=== PATIENT | female | born 1965 | race Caucasian/White ===

== ENCOUNTER 2017-07-01 11:24 | Inpatient (IN) | payer MEDICAID, OTHER ==
[~2017-07-01] VITALS: Ht 152.4 cm; Wt 75.7 kg
[2017-07-01] MEDS ORDERED: MEROPENEM 1 GM/50ML(PMX) 50 ML IVPB STA (12:15)
[2017-07-01] MEDS ORDERED: SODIUM CHLORIDE 0.9% 1L BAG IV* STA (12:15)
[2017-07-01 12:38] LABS: BASOPHIL # 0.1 10^3/ul (0.0-0.1); BASOPHILS % 0.9 % (0.0-2.0); EOSINOPHILS # 0.1 10^3/ul (0.0-0.5); EOSINOPHILS % 1.2 % (0.0-7.0); HEMATOCRIT 40.2 % (37.0-47.0); HEMOGLOBIN 13.5 g/dl (12.0-16.0); LYMPHOCYTES # 1.7 10^3/ul (0.8-2.9); LYMPHOCYTES % 20.5 % (15.0-51.0); MEAN CORPUSCULAR HEMOGLOBIN 28.7 pg (29.0-33.0); MEAN CORPUSCULAR HGB CONC 33.6 g/dl (32.0-37.0); MEAN CORPUSCULAR VOLUME 85.5 fl (82.0-101.0); MEAN PLATELET VOLUME 9.3 fl (7.4-10.4); MONOCYTE # 0.5 10^3/ul (0.3-0.9); MONOCYTES % 6.7 % (0.0-11.0); NEUTROPHILS % 70.6 % (39.0-77.0); PLATELET COUNT 437 10^3/UL (140-415); RED CELL DISTRIBUTION WIDTH 12.6 % (11.5-14.5); WHITE BLOOD COUNT 8.1 10^3/ul (4.8-10.8)
[2017-07-01 12:53] LABS: INR 0.92; PROTIME 12.4 Sec (12.2-14.2)
[2017-07-01 12:54] LABS: PARTIAL THROMBOPLASTIN TIME 26.9 Sec (25.0-35.0)
[2017-07-01 13:16] LABS: ALANINE AMINOTRANSFERASE 50 IU/L (13-69); ALBUMIN 4.3 g/dl (3.3-4.9); ALBUMIN/GLOBULIN RATIO 1.26; ALKALINE PHOSPHATASE 107 IU/L (42-121); ANION GAP 12 (8-16); ASPARTATE AMINO TRANSFERASE 28 IU/L (15-46); BILIRUBIN,INDIRECT 0.3 mg/dl (0-1.1); BILIRUBIN,TOTAL 0.3 mg/dl (0.2-1.3); BLOOD UREA NITROGEN 11 mg/dl (7-20); CALCIUM 9.6 mg/dl (8.4-10.2); CARBON DIOXIDE 28 mmol/L (21-31); CHLORIDE 101 mmol/L (97-110); CREATININE 0.58 mg/dl (0.44-1.00); GLUCOSE 95 mg/dl (70-220); POTASSIUM 4.1 mmol/L (3.5-5.1); SODIUM 137 mmol/L (135-144); TOTAL PROTEIN 7.7 g/dl (6.1-8.1)
--- NOTE | 2017-07-01 13:30 | ERA ---
ER Documentation Chief Complaint Date/Time DATE: 07/01/17 TIME: 13:27 Chief Complaint ap with diarrhea x day HPI Patient is a 52-year-old female with hypertension who presents for multidrug- resistant UTI. The patient was sent to the ER by Dr. Grady the primary doctor for UTI which is failed outpatient treatment. She said that she has had pain in the left lower quadrant and over the bladder for 1 month and was treated with antibiotics as an outpatient but was not getting better. A urine culture done as an outpatient showed multidrug-resistant UTI sensitive to meropenem and ertapenem per the primary doctor. ROS All systems reviewed and are negative except as per history of present illness. Allergies Allergies: Coded Allergies: No Known Allergy (Unverified , 07/01/17) PMhx/Soc History of Surgery: No Anesthesia Reaction: No Hx Neurological Disorder: No Hx Respiratory Disorders: No Hx Cardiac Disorders: No Hx Psychiatric Problems: No Hx Miscellaneous Medical Probl: Yes (kidney stone.) Hx Alcohol Use: Yes Hx Substance Use: No Hx Tobacco Use: No Smoking Status: Never smoker FmHx Family History: diabetes Physical Exam Vitals Vital Signs Date Time Temp Pulse Resp B/P Pulse Ox O2 Delivery O2 Flow Rate FiO2 07/01/17 11:37 97.8 79 18 160/90 99 Physical Exam Const: No acute distress Head: Atraumatic Eyes: Normal Conjunctiva ENT: Normal External Ears, Nose and Mouth. Neck: Full range of motion..~ No meningismus. Resp: Clear to auscultation bilaterally Cardio: Regular rate and rhythm, no murmurs Abd: Soft,Left lower quadrant tenderness to palpation without rebound or guarding Skin: No petechiae or rashes Back: No midline or flank tenderness Ext: No cyanosis, or edema Neur: Awake and alert Psych: Normal Mood and Affect Result Diagram: 07/01/17 1225 07/01/17 1225 Results 24 hrs Laboratory Tests Test 07/01/17 12:25 White Blood Count 8.110^3/ul Red Blood Count 4.7010^6/ul Hemoglobin 13.5g/dl Hematocrit 40.2% Mean Corpuscular Volume 85.5fl Mean Corpuscular Hemoglobin 28.7pg Mean Corpuscular Hemoglobin Concent 33.6g/dl Red Cell Distribution Width 12.6% Platelet Count 40695^3/UL Mean Platelet Volume 9.3fl Neutrophils % 70.6% Lymphocytes % 20.5% Monocytes % 6.7% Eosinophils % 1.2% Basophils % 0.9% Nucleated Red Blood Cells % 0.0/100WBC Neutrophils # (Manual) 5.710^3/ul Lymphocytes # 1.710^3/ul Monocytes # 0.510^3/ul Eosinophils # 0.110^3/ul Basophils # 0.110^3/ul Nucleated Red Blood Cells # 0.010^3/ul Prothrombin Time 12.4Sec Prothrombin Time Ratio 1.0 INR International Normalized Ratio 0.92 Activated Partial Thromboplast Time 26.9Sec Sodium Level 137mmol/L Potassium Level 4.1mmol/L Chloride Level 101mmol/L Carbon Dioxide Level 28mmol/L Anion Gap 12 Blood Urea Nitrogen 11mg/dl Creatinine 0.58mg/dl Glucose Level 95mg/dl Calcium Level 9.6mg/dl Total Bilirubin 0.3mg/dl Direct Bilirubin 0.00mg/dl Indirect Bilirubin 0.3mg/dl Aspartate Amino Transf (AST/SGOT) 28IU/L Alanine Aminotransferase (ALT/SGPT) 50IU/L Alkaline Phosphatase 107IU/L Troponin I Pending Total Protein 7.7g/dl Albumin 4.3g/dl Globulin 3.40g/dl Albumin/Globulin Ratio 1.26 Current Medications Medications (Trade) Dose Ordered Sig/Jimbo Route PRN Reason Start Time Stop Time Status Last Admin Dose Admin Sodium Chloride 2760 ml 2,760 ml BOLUS OVER 2 HOURS STAT IV* 07/01/17 12:15 07/01/17 12:16 DC 07/01/17 12:39 Meropenem/Sodium Chloride (Merrem 1 Gm/50 ml (Pmx)) 50 ml @ 100 mls/hr ONCE STAT IVPB 07/01/17 12:15 07/01/17 12:44 DC 07/01/17 13:01 Procedures/MDM EKG read by me: Rate/Rhythm: Regular rate and rhythm at a normal rate Intervals: Normal Impression: No evidence of ischemia or arrhythmia Patient is a 52-year-old female presents with a multidrug-resistant UTI. It sounds like from an outpatient urine culture the patient is only sensitive to the panel medications. The patient has [facility] insurance and therefore will need admission to Dr. Ward. I have called Dr. Ward and I am awaiting a callback at this time for admission to a medical surgical bed. The patient was given meropenem 1 g IV. I doubt sepsis at this time. The patient has a urinalysis and urine culture pending from [facility]. She is already been on outpatient antibiotics and has failed outpatient antibiotics this time. Departure Diagnosis: Primary Impression: UTI (urinary tract infection) Qualified Code: N30.00 - Acute cystitis without hematuria Additional Impression: Abdominal pain Qualified Code: R10.32 - Left lower quadrant pain Condition: BRENDON Vargas MD Jul 01, 2017 13:30
[2017-07-01 13:52] LABS: TROPONIN-I < 0.012 ng/ml (0.00-0.12)
[2017-07-01 13:53] LABS: ADD UMIC YES; UR ASCORBIC ACID NEGATIVE (NEGATIVE); UR BACTERIA FEW /HPF (NONE SEEN); UR BILIRUBIN (Dip) NEGATIVE (NEGATIVE); UR BLOOD (Dip) 1+ mg/dL (NEGATIVE); UR CLARITY SLIGHTLY CLOUDY (CLEAR); UR COLOR YELLOW (YELLOW); UR GLUCOSE (Dip) NEGATIVE (NEGATIVE); UR KETONES (Dip) NEGATIVE (NEGATIVE); UR LEUKOCYTE ESTERASE (Dip) 3+ Leu/ul (NEGATIVE); UR NITRITE (Dip) NEGATIVE (NEGATIVE); UR RBC 5 /HPF (0-5); UR SPECIFIC GRAVITY (Dip) 1.004 (1.003-1.030); UR SQUAMOUS EPITHELIAL CELL FEW /HPF (FEW); UR TOTAL PROTEIN (Dip) NEGATIVE (NEGATIVE); UR UROBILINOGEN (Dip) NEGATIVE (NEGATIVE)
[2017-07-01] MEDS ORDERED: ONDANSETRON 4 MG INJ IV PRN ×2 (14:00→17:30)
[2017-07-01] MEDS ORDERED: ACETAMINOPHEN 325 MG TAB PO PRN (14:00)
[2017-07-01 14:55] VITALS: TEMP 98.4
[2017-07-01] MEDS ORDERED: LOSA25TA2 PO (16:30)
[2017-07-01] MEDS ORDERED: METR70GE15 VAG (16:30)
[2017-07-01 16:43] VITALS: Ht 152.4 cm; Wt 75.7 kg
[2017-07-01 16:51] VITALS: BP 161/97; PULSE 66; RESP 20
[2017-07-01] MEDS ORDERED: ACETAMINOPHEN 650 MG SUPP PR PRN (17:30)
[2017-07-01] MEDS ORDERED: HYDROCODONE/APAP (5/325) TAB PO PRN (17:30)
[2017-07-01] MEDS ORDERED: NACL 0.9% 3 ML SYG IV SCH (17:30)
[2017-07-01] MEDS ORDERED: BISACODYL (EC) 5 MG TAB PO PRN (17:30)
[2017-07-01] MEDS ORDERED: DOCUSATE SODIUM 100 MG CAP PO PRN (17:30)
[2017-07-01] MEDS ORDERED: ZOLPIDEM 5 MG TAB PO PRN (17:30)
--- NOTE | 2017-07-01 17:57 | QN ---
Documentation Comment [id number] NICOLAS BARILLAS MD Jul 01, 2017 17:57
[2017-07-01] MEDS: SOD CHLORIDE 0.9% 1,000 ML IV SCH (18:10)
--- NOTE | 2017-07-01 19:32 | HP ---
DATE OF ADMISSION: 07/01/2017 HISTORY OF PRESENT ILLNESS: The patient with a history of hypertension, history of hysterectomy, history of multiple UTIs with bacterial resistance per patient who presented with recurrent UTI. The patient's leukocytes 3 plus, WBC is positive in the ER, as well as bacterial too. ALLERGIES: BENADRYL. FAMILY HISTORY: Diabetes and hypertension. SOCIAL HISTORY: Negative. MEDICATIONS AT HOME: The patient is Cozaar and Flagyl. REVIEW OF SYSTEMS: HEENT: Unremarkable. RESPIRATORY: Unremarkable. CARDIOVASCULAR: Unremarkable. ABDOMEN: Unremarkable. EXTREMITIES: Unremarkable. GENITOURINARY: Complaining of dysuria. WATER SPONGER: Unremarkable. PHYSICAL EXAMINATION: GENERAL APPEARANCE: The patient is awake, alert. VITAL SIGNS: Pulse 56, blood pressure 161/87. HEENT: Head is atraumatic, normocephalic. Pupils equal and reactive. NECK: Supple. There is no JVD. LUNGS: Clear. CARDIAC: S1, S2, normal. ABDOMEN: Soft, nontender. Bowel sounds audible. EXTREMITIES: No cyanosis, clubbing, or edema. WATER SPONGER: The patient is awake, alert, no focal deficit. LABORATORY DATA: As mentioned above. Urine positive. Sodium , potassium 4.1. IMPRESSION: 1. The patient has bacterial urinary tract infection (UTI). 2. Multi drug resistant urinary tract infection (UTI). PLAN: Continue to give this patient low salt diet. Continue home medications and antibiotics. Continue for culture results. Continue pain medications. Orders were done. Dictated By: Harley Ward MD /curt/yeni /Document#: [id number] BERNABE
[2017-07-01 20:17] VITALS: BP 167/83; RESP 18
[2017-07-01] MEDS: MEROPENEM 1 GM/50ML(PMX) 50 ML IVPB SCH (20:25)
[2017-07-01 21:27] VITALS: BP 125/79; PULSE 59; RESP 18
[2017-07-01 22:39] VITALS: BP 134/80; PULSE 60; RESP 17
[2017-07-01] MEDS ORDERED: MEROPENEM 2 GM in SOD CHLORIDE 0.9% 100 ML IVPB SCH (23:00)
[2017-07-02 02:11] VITALS: BP 135/85; RESP 18
[2017-07-02 03:03] VITALS: PULSE 70
[2017-07-02] MEDS: MEROPENEM 1 GM/50ML(PMX) 50 ML IVPB SCH ×3 (05:17→21:38)
[2017-07-02] MEDS ORDERED: PANTOPRAZOLE 40 MG INJ IV SCH (06:00)
[2017-07-02 07:54] VITALS: BP 120/76; RESP 17
[2017-07-02] MEDS: LOSARTAN 25 MG TAB PO SCH (09:14)
[2017-07-02] MEDS: MAGNESIUM HYDROXIDE 30ML CUP PO PRN (09:27)
[2017-07-02 14:31] VITALS: BP 114/70; RESP 18
[2017-07-02] MEDS: SOD CHLORIDE 0.9% 1,000 ML IV SCH (14:46)
[2017-07-02] MEDS: ACETAMINOPHEN 325 MG TAB PO PRN (19:51)
[2017-07-02 20:05] VITALS: BP 140/96; RESP 19
--- NOTE | 2017-07-02 23:35 | PN ---
Date/Time of Note Date/Time of Note DATE: 07/02/17 TIME: 23:34 Assessment/Plan VTE Prophylaxis VTE Prophylaxis Intervention: other Lines/Catheters IV [facility]from [facility] [place] Urinary Cath still in place: No Assessment/Plan Chief Complaint/Hosp Course IMPRESSION: 1. The patient has bacterial urinary tract infection (UTI). 2. Multi drug resistant urinary tract infection (UTI). PLAN ANTIBIOTIC Problems: Subjective 24 Hr Interval Summary Cardiovascular: no complaints Gastrointestinal: no complaints Exam/Review of Systems Vital Signs Vitals Vital Signs Date Time Temp Pulse Resp B/P Pulse Ox O2 Delivery O2 Flow Rate FiO2 07/02/17 20:05 98.0 77 19 140/96 99 07/01/17 22:39 Room Air Intake and Output 07/01/17 07/01/17 07/02/17 15:00 23:00 07:00 Intake Total 50 ml 1100 ml Output Total 1200 ml Balance 50 ml -100 ml Exam Respiratory: clear to auscultation Cardiovascular: regular rate and rhythm Gastrointestinal: soft Extremities: normal pulses Results Result Diagram: 07/01/17 1225 07/01/17 1225 Medications Medications Current Medications Losartan Potassium 25 mg 25 mg DAILY PO Last administered on 07/02/17 09:14; Admin Dose 25 MG; Start 07/02/17 at 09:00 Sodium Chloride (NS) 1,000 ml @ 50 mls/hr Q20H IV Last administered on 14:46; Admin Dose 50 MLS/HR; Start 07/01/17 at 17:01 Ondansetron HCl (Zofran Inj) 4 mg Q6H PRN IV NAUSEA AND/OR VOMITING; Start 07/01 at 17:30 Acetaminophen (Tylenol Tab) 650 mg Q6H PRN PO PAIN LEVEL 1-3 OR FEVER Last administered on 07/02/17 19:51; Admin Dose 650 MG; Start 07/01/17 at 17:30 Acetaminophen (Tylenol Supp) 650 mg Q6H PRN [place] PAIN LEVEL 1-3 OR FEVER; Start 07/01/17 at 17:30 Acetaminophen/ Hydrocodone Bitart ([place] (5/325)) 1 tab Q6H PRN PO MODERATE PAIN LEVEL 4-6; Start 07/01/17 at 17:30 Docusate Sodium (Colace) 100 mg Q12H PRN PO CONSTIPATION; Start 07/01/17 at 17: 30 Magnesium Hydroxide (Milk Of Mag) 30 ml DAILY PRN PO CONSTIPATION Last administered on 07/02/17 09:27; Admin Dose 30 ML; Start 07/01/17 at 17:30 Bisacodyl (Dulcolax) 5 mg DAILY PRN PO CONSTIPATION; Start 07/01/17 at 17:30 Zolpidem Tartrate 5 mg 5 mg QHS PRN PO SLEEP; Start 07/01/17 at 17:30 Meropenem/Sodium Chloride (Merrem 1 Gm/50 ml (Pmx)) 50 ml @ 100 mls/hr Q8 IVPB Last administered on 07/02/17 21:38; Admin Dose 100 MLS/HR; Start 07/01/17 at 21:00 Pantoprazole (Protonix Tab) 40 mg DAILY@06 PO ; Start 07/03/17 at 06:00 NICOLAS BARILLAS MD Jul 02, 2017 23:35
[2017-07-03] MEDS ORDERED: ALBUTEROL/IPRATROPIUM (NEB) 3 ML AMP HHN PRN
[2017-07-03 02:05] VITALS: BP 119/75; RESP 18
[2017-07-03] MEDS: PANTOPRAZOLE (EC) 40 MG TAB PO SCH (05:11)
[2017-07-03] MEDS: MEROPENEM 1 GM/50ML(PMX) 50 ML IVPB SCH ×3 (05:11→20:48)
[2017-07-03 06:37] LABS: BASOPHIL # 0.1 10^3/ul (0.0-0.1); BASOPHILS % 0.6 % (0.0-2.0); EOSINOPHILS # 0.2 10^3/ul (0.0-0.5); HEMATOCRIT 37.7 % (37.0-47.0); HEMOGLOBIN 12.9 g/dl (12.0-16.0); LYMPHOCYTES # 1.9 10^3/ul (0.8-2.9); LYMPHOCYTES % 22.5 % (15.0-51.0); MEAN CORPUSCULAR HEMOGLOBIN 29.5 pg (29.0-33.0); MEAN CORPUSCULAR HGB CONC 34.2 g/dl (32.0-37.0); MEAN CORPUSCULAR VOLUME 86.1 fl (82.0-101.0); MEAN PLATELET VOLUME 9.1 fl (7.4-10.4); MONOCYTE # 0.5 10^3/ul (0.3-0.9); MONOCYTES % 6.4 % (0.0-11.0); NEUTROPHILS % 68.3 % (39.0-77.0); PLATELET COUNT 386 10^3/UL (140-415); RED BLOOD COUNT 4.38 10^6/ul (4.20-5.40); RED CELL DISTRIBUTION WIDTH 12.4 % (11.5-14.5); WHITE BLOOD COUNT 8.3 10^3/ul (4.8-10.8)
[2017-07-03 07:03] LABS: ALBUMIN 3.6 g/dl (3.3-4.9); ALBUMIN/GLOBULIN RATIO 1.24; BILIRUBIN,INDIRECT 0.3 mg/dl (0-1.1); BILIRUBIN,TOTAL 0.3 mg/dl (0.2-1.3); CALCIUM 8.7 mg/dl (8.4-10.2); CREATININE 0.48 mg/dl (0.44-1.00); POTASSIUM 3.9 mmol/L (3.5-5.1); TOTAL PROTEIN 6.5 g/dl (6.1-8.1)
[2017-07-03 08:08] VITALS: BP 143/81; RESP 16
[2017-07-03] MEDS: SOD CHLORIDE 0.9% 1,000 ML IV SCH (08:54)
[2017-07-03] MEDS: LOSARTAN 25 MG TAB PO SCH (08:54)
--- NOTE | 2017-07-03 14:11 | RADRPT ---
PROCEDURE: Retroperitoneal US. CLINICAL INDICATION: Urinary tract infection TECHNIQUE: Multiple sonographic images of the retroperitoneum were obtained. The images were revi ewed on a PACS workstation. COMPARISON: No prior studies are available for comparison. FINDINGS: The right kidney measures 13.7 cm. The left kidney measures 13.2 cm. The renal parenchymal echotexture is normal. There is moderate to severe right hydronephrosis. There is mild left hydronephrosis. There is no focal renal mass or calcification seen. There is a 2 cm shadowing lesion within the dependent portion of the bladder consistent with a bladd er calculus. The bladder is underdistended. IMPRESSION: Moderate to severe right hydronephrosis. Mild left hydronephrosis. 2 cm bladder calculus. A CT study can be obtained for further evaluation. RPTAT: EE Physician Stefan Date Time Electronically viewed and signed by Physician Stefan on 07/03/2017 14:11 /
[2017-07-03 14:53] VITALS: BP 134/76; RESP 17
--- NOTE | 2017-07-03 17:39 | PN ---
Date/Time of Note Date/Time of Note DATE: 07/03/17 TIME: 17:38 Assessment/Plan VTE Prophylaxis VTE Prophylaxis Intervention: other Lines/Catheters IV C[facility]ter Type (from [facility]): Peripheral IV Urinary Cath still in place: No Assessment/Plan Chief Complaint/Hosp Course IMPRESSION: 1. The patient has bacterial urinary tract infection (UTI). 2. Multi drug resistant urinary tract infection (UTI). 3 esbl uti 4 bladder stone PLAN ANTIBIOTIC dr read called Problems: Subjective 24 Hr Interval Summary Respiratory: no complaints Cardiovascular: no complaints Gastrointestinal: no complaints Genitourinary: No dysuria Exam/Review of Systems Vital Signs Vitals Vital Signs Date Time Temp Pulse Resp B/P Pulse Ox O2 Delivery O2 Flow Rate FiO2 07/03/17 14:53 97.6 77 17 134/76 97 07/01/17 22:39 Room Air Intake and Output 07/02/17 07/02/17 07/03/17 14:59 22:59 06:59 Intake Total 450 ml 1025 ml 710 ml Balance 450 ml 1025 ml 710 ml Exam Neck: supple Respiratory: clear to auscultation Cardiovascular: regular rate and rhythm Gastrointestinal: soft Musculoskeletal: nl extremities to inspection Extremities: normal pulses Results Result Diagram: 07/03/17 0627 07/03/17 0627 Results 24 hrs Laboratory Tests Test 07/03/17 06:27 White Blood Count 8.3 Red Blood Count 4.38 Hemoglobin 12.9 Hematocrit 37.7 Mean Corpuscular Volume 86.1 Mean Corpuscular Hemoglobin 29.5 Mean Corpuscular Hemoglobin Concent 34.2 Red Cell Distribution Width 12.4 Platelet Count 386 Mean Platelet Volume 9.1 Neutrophils % 68.3 Lymphocytes % 22.5 Monocytes % 6.4 Eosinophils % 2.0 Basophils % 0.6 Nucleated Red Blood Cells % 0.0 Neutrophils # (Manual) 5.7 Lymphocytes # 1.9 Monocytes # 0.5 Eosinophils # 0.2 Basophils # 0.1 Nucleated Red Blood Cells # 0.0 Sodium Level 137 Potassium Level 3.9 Chloride Level 106 Carbon Dioxide Level 22 Anion Gap 13 Blood Urea Nitrogen 9 Creatinine 0.48 Glucose Level 132 Calcium Level 8.7 Total Bilirubin 0.3 Direct Bilirubin 0.00 Indirect Bilirubin 0.3 Aspartate Amino Transf (AST/SGOT) 20 Alanine Aminotransferase (ALT/SGPT) 39 Alkaline Phosphatase 86 Total Protein 6.5 # Albumin 3.6 Globulin 2.90 Albumin/Globulin Ratio 1.24 Medications Medications Current Medications Losartan Potassium 25 mg 25 mg DAILY PO Last administered on 07/03/17 08:54; Admin Dose 25 MG; Start 07/02/17 at 09:00 Sodium Chloride (NS) 1,000 ml @ 50 mls/hr Q20H IV Last administered on 08:54; Admin Dose 50 MLS/HR; Start 07/01/17 at 17:01 Ondansetron HCl (Zofran Inj) 4 mg Q6H PRN IV NAUSEA AND/OR VOMITING; Start 07/01 at 17:30 Acetaminophen (Tylenol Tab) 650 mg Q6H PRN PO PAIN LEVEL 1-3 OR FEVER Last administered on 07/02/17 19:51; Admin Dose 650 MG; Start 07/01/17 at 17:30 Acetaminophen (Tylenol Supp) [address] PAIN LEVEL 1-3 OR FEVER; Start 07/01/17 at 17:30 Acetaminophen/ Hydrocodone Bitart ([place] (5/325)) 1 tab Q6H PRN PO MODERATE PAIN LEVEL 4-6; Start 07/01/17 at 17:30 Docusate Sodium (Colace) 100 mg Q12H PRN PO CONSTIPATION; Start 07/01/17 at 17: 30 Magnesium Hydroxide (Milk Of Mag) 30 ml DAILY PRN PO CONSTIPATION Last administered on 07/02/17 09:27; Admin Dose 30 ML; Start 07/01/17 at 17:30 Bisacodyl (Dulcolax) 5 mg DAILY PRN PO CONSTIPATION; Start 07/01/17 at 17:30 Zolpidem Tartrate 5 mg 5 mg QHS PRN PO SLEEP; Start 07/01/17 at 17:30 Meropenem/Sodium Chloride (Merrem 1 Gm/50 ml (Pmx)) 50 ml @ 100 mls/hr Q8 IVPB Last administered on 07/03/17 14:37; Admin Dose 100 MLS/HR; Start 07/01/17 at 21:00 Pantoprazole (Protonix Tab) 40 mg DAILY@06 PO Last administered on 07/03/17 05: 11; Admin Dose 40 MG; Start 07/03/17 at 06:00 NICOLAS BARILLAS MD Jul 03, 2017 17:39
[2017-07-03 20:00] VITALS: BP 142/72; RESP 18
--- NOTE | 2017-07-03 20:00 | CONS ---
Date/Time of Note Date/Time of Note DATE: 07/03/17 TIME: 19:47 Assessment/Plan Assessment/Plan Chief Complaint/Hosp Course 52-year-old female with recurrent urinary tract infection and infection that are resistant to oral antibiotic patient has ESBL in the urine and the renal ultrasound did show 2 cm bladder stone however the stone that is seen in the bladder would be a stone in the distal ureter or in a ureterocele. I did order a CT scan of the abdomen and pelvis and that should help us see the stones in the kidneys and follow the ureter down to the bladder and see if the stone is in the bladder or in the distal ureter or in a ureterocele. In the meantime she should continue the meropenem to treat her infection and most likely by Friday will be able to do a cystoscopy and break and remove the stone from either the bladder or the distal ureter or ureterocele. That will be determined after she gets the CT scan Problems: Consultation Date/Type/Reason Admit Date/Time Jul 01, 2017 at 13:56 Date of Consultation: Jul 03, 2017 Type of Consultation: Urology Reason for Consultation Bladder stones Referring Provider: NICOLAS BARILLAS MD Hx of Present Illness 52-year-old female was sent to the emergency room by her primary care physician because of urinary tract infection that is resistant to usual oral antibiotic and she needed only IV antibiotics. Patient had renal ultrasound and that showed kidney stones as well as bladder stones therefore a urological consultation was requested. The patient stated that she has been having recurrent urinary tract infections and she was recently referred by her primary care doctor to a urologist in [place] and also she was found to have an infection and she was told that she needs to have the infection treated first and the doctor was planning on looking inside her bladder. The patient does have a history of kidney stones and she thinks that she has passed them Constitutional: other (Patient very emotional and at sometimes she was crying) Eyes: no complaints ENT: no complaints Respiratory: no complaints Cardiovascular: no complaints Gastrointestinal: no complaints Genitourinary: dysuria, flank pain Musculoskeletal: no complaints Skin: no complaints Neurologic: no complaints Endocrine: no complaints Lymphatic: no complaints Psychological: no complaints Past Medical History Medical History: hypertension Past Surgical History Past Surgical Hx: other (Hysterectomy) Social History Alcohol Use: occasionally Smoking Status: Never smoker Drug Use: none Exam/Review of Systems Vital Signs Vitals Vital Signs Date Time Temp Pulse Resp B/P Pulse Ox O2 Delivery O2 Flow Rate FiO2 07/03/17 14:53 97.6 77 17 134/76 97 07/01/17 22:39 Room Air Intake and Output 07/02/17 07/02/17 07/03/17 14:59 22:59 06:59 Intake Total 450 ml 1025 ml 710 ml Balance 450 ml 1025 ml 710 ml Exam Constitutional: alert, oriented Psych: anxiety, no complaints Head: normocephalic Eyes: nl conjunctiva ENMT: nl external ears & nose Neck: non-tender, supple Respiratory: normal air movement Cardiovascular: nl pulses Gastrointestinal: soft, surgical scars Genitourinary - Female: CVA tenderness, other (Pelvic exam: pain on the right side, no discharge and no mass palpable) Musculoskeletal: nl extremities to inspection Extremities: No calf tenderness, No edema Results Renal ultrasound: Moderate to severe right hydronephrosis. Mild left hydronephrosis. 2 cm bladder calculus. Result Diagram: 07/03/1762607/03/17626 Results 24 hrs Laboratory Tests Test 07/03/17 06:27 White Blood Count 8.3 Red Blood Count 4.38 Hemoglobin 12.9 Hematocrit 37.7 Mean Corpuscular Volume 86.1 Mean Corpuscular Hemoglobin 29.5 Mean Corpuscular Hemoglobin Concent 34.2 Red Cell Distribution Width 12.4 Platelet Count 386 Mean Platelet Volume 9.1 Neutrophils % 68.3 Lymphocytes % 22.5 Monocytes % 6.4 Eosinophils % 2.0 Basophils % 0.6 Nucleated Red Blood Cells % 0.0 Neutrophils # (Manual) 5.7 Lymphocytes # 1.9 Monocytes # 0.5 Eosinophils # 0.2 Basophils # 0.1 Nucleated Red Blood Cells # 0.0 Sodium Level 137 Potassium Level 3.9 Chloride Level 106 Carbon Dioxide Level 22 Anion Gap 13 Blood Urea Nitrogen 9 Creatinine 0.48 Glucose Level 132 Calcium Level 8.7 Total Bilirubin 0.3 Direct Bilirubin 0.00 Indirect Bilirubin 0.3 Aspartate Amino Transf (AST/SGOT) 20 Alanine Aminotransferase (ALT/SGPT) 39 Alkaline Phosphatase 86 Total Protein 6.5 # Albumin 3.6 Globulin 2.90 Albumin/Globulin Ratio 1.24 Medications Medications Current Medications Losartan Potassium 25 mg 25 mg DAILY PO Last administered on 07/03/17t 08:54; Admin Dose 25 MG; Start 07/02/17 at 09:00 Sodium Chloride (NS) 1,000 ml @ 50 mls/hr Q20H IV Last administered on 08:54; Admin Dose 50 MLS/HR; Start 07/01/17 at 17:01 Ondansetron HCl (Zofran Inj) 4 mg Q6H PRN IV NAUSEA AND/OR VOMITING; Start 07/01 at 17:30 Acetaminophen (Tylenol Tab) 650 mg Q6H PRN PO PAIN LEVEL 1-3 OR FEVER Last administered on 07/02/17 19:51; Admin Dose 650 MG; Start 07/01/17 at 17:30 Acetaminophen (Tylenol Supp) 650 mg Q6H PRN [place] PAIN LEVEL 1-3 OR FEVER; Start 07/01/17 at 17:30 Acetaminophen/ Hydrocodone Bitart ([place] (5/325)) 1 tab Q6H PRN PO MODERATE PAIN LEVEL 4-6; Start 07/01/17 at 17:30 Docusate Sodium (Colace) 100 mg Q12H PRN PO CONSTIPATION; Start 07/01/17 at 17: 30 Magnesium Hydroxide (Milk Of Mag) 30 ml DAILY PRN PO CONSTIPATION Last administered on 07/02/17 09:27; Admin Dose 30 ML; Start 07/01/17 at 17:30 Bisacodyl (Dulcolax) 5 mg DAILY PRN PO CONSTIPATION; Start 07/01/17 at 17:30 Zolpidem Tartrate 5 mg 5 mg QHS PRN PO SLEEP; Start 07/01/17 at 17:30 Meropenem/Sodium Chloride (Merrem 1 Gm/50 ml (Pmx)) 50 ml @ 100 mls/hr Q8 IVPB Last administered on 07/03/17 14:37; Admin Dose 100 MLS/HR; Start 07/01/17 at 21:00 Pantoprazole (Protonix Tab) 40 mg DAILY@06 PO Last administered on 07/03/17 05: 11; Admin Dose 40 MG; Start 07/03/17 at 06:00 TAVARES MOTT MD Jul 03, 2017 19:59
[2017-07-03] MEDS: ACETAMINOPHEN 325 MG TAB PO PRN (20:48)
--- NOTE | 2017-07-03 23:28 | RADRPT ---
PROCEDURE: XR Chest. CLINICAL INDICATION: bladder/ureteral and renal stones/ preop TECHNIQUE: Single frontal view of the chest was obtained. COMPARISON: None. FINDINGS: The cardiomediastinal silhouette is normal size. Pulmonary vasculature is within normal limits. Th e lungs are clear. No signs of pleural fluid or pneumothorax are seen. The osseous structures and soft tissues are unre markable. IMPRESSION: No evidence for active cardiopulmonary disease. RPTAT: HBST .Rocael Guerra MD, MD Date Time Electronically viewed and signed by .Rocael Guerra MD, MD on 07/03/2017 23:27 .T/
--- NOTE | 2017-07-03 23:30 | RADRPT ---
PROCEDURE: XR Abdomen. CLINICAL INDICATION: bladder/ureteral and renal stones TECHNIQUE: AP abdomen x-ray. COMPARISON: None. FINDINGS: The bowel gas pattern is normal. There is no evidence of obstruction. There are no abnormal calcific ations overlying the urinary tracts. The kidneys were largely obscured by fecal material in the oksana l gas within the colon. 10 x 17 mm calcification overlying the right erin pelvis inferiorly was comp atible bladder calculus. The osseus structures are unremarkable. IMPRESSION: 1. No demonstrable abnormal calcifications overlying the kidneys, however, the kidneys are obscured by overlying bowel gas and fecal material within the colon. 2. 10 x 17 mm calcification overlying the pelvis most compatible with bladder calculus. RPTAT:AAJJ Physician Dajuan Date Time Electronically viewed and signed by Physician Dajuan on 07/03/2017 23:30 LYNDA/
[2017-07-04 02:42] VITALS: BP 143/93; RESP 18
[2017-07-04] MEDS: SOD CHLORIDE 0.9% 1,000 ML IV SCH (04:43)
[2017-07-04] MEDS: MEROPENEM 1 GM/50ML(PMX) 50 ML IVPB SCH ×3 (04:46→21:01)
[2017-07-04] MEDS: PANTOPRAZOLE (EC) 40 MG TAB PO SCH (05:19)
[2017-07-04 08:00] VITALS: BP 133/70; RESP 20
[2017-07-04] MEDS: LOSARTAN 25 MG TAB PO SCH (08:43)
--- NOTE | 2017-07-04 11:09 | PN ---
Date/Time of Note Date/Time of Note DATE: 07/04/17 TIME: 11:08 Assessment/Plan VTE Prophylaxis VTE Prophylaxis Intervention: ambulation Lines/Catheters IV Catheter Type (from [facility]rs): Peripheral IV Urinary Cath still in place: No Assessment/Plan Chief Complaint/Hosp Course 1. The patient has bacterial urinary tract infection (UTI). 2. Multi drug resistant urinary tract infection (UTI). 3 esbl urine 4 bladder stone Problems: Assessment/Plan 1. Continue a.b 2. Possible stent placement Subjective 24 Hr Interval Summary Respiratory: no complaints Gastrointestinal: pain Musculoskeletal: no complaints Exam/Review of Systems Vital Signs Vitals Vital Signs Date Time Temp Pulse Resp B/P Pulse Ox O2 Delivery O2 Flow Rate FiO2 07/04/17 08:00 98.6 72 20 133/70 96 07/01/17 22:39 Room Air Intake and Output 07/03/17 07/03/17 07/04/17 15:00 23:00 07:00 Intake Total 175 ml 500 ml 560 ml Balance 175 ml 500 ml 560 ml Exam Constitutional: alert, oriented Neck: supple Cardiovascular: regular rate and rhythm Results Result Diagram: 07/03/1762607/03/17626 Medications Medications Current Medications Losartan Potassium 25 mg 25 mg DAILY PO Last administered on 07/04/17 08:43; Admin Dose 25 MG; Start 07/02/17 at 09:00 Sodium Chloride (NS) 1,000 ml @ 50 mls/hr Q20H IV Last administered on 04:43; Admin Dose 50 MLS/HR; Start 07/01/17 at 17:01 Ondansetron HCl (Zofran Inj) 4 mg Q6H PRN IV NAUSEA AND/OR VOMITING; Start 07/01 at 17:30 Acetaminophen (Tylenol Tab) 650 mg Q6H PRN PO PAIN LEVEL 1-3 OR FEVER Last administered on 07/03/17 20:48; Admin Dose 650 MG; Start 07/01/17 at 17:30 Acetaminophen (Tylenol Supp) 650 mg Q6H PRN [place] PAIN LEVEL 1-3 OR FEVER; Start 07/01/17 at 17:30 Acetaminophen/ Hydrocodone Bitart ([place] (5/325)) 1 tab Q6H PRN PO MODERATE PAIN LEVEL 4-6; Start 07/01/17 at 17:30 Docusate Sodium (Colace) 100 mg Q12H PRN PO CONSTIPATION; Start 07/01/17 at 17: 30 Magnesium Hydroxide (Milk Of Mag) 30 ml DAILY PRN PO CONSTIPATION Last administered on 07/02/17 09:27; Admin Dose 30 ML; Start 07/01/17 at 17:30 Bisacodyl (Dulcolax) 5 mg DAILY PRN PO CONSTIPATION; Start 07/01/17 at 17:30 Zolpidem Tartrate 5 mg 5 mg QHS PRN PO SLEEP; Start 07/01/17 at 17:30 Meropenem/Sodium Chloride (Merrem 1 Gm/50 ml (Pmx)) 50 ml @ 100 mls/hr Q8 IVPB Last administered on 07/04/17 04:46; Admin Dose 100 MLS/HR; Start 07/01/17 at 21:00 Pantoprazole (Protonix Tab) 40 mg DAILY@06 PO Last administered on 07/04/17 05: 19; Admin Dose 40 MG; Start 07/03/17 at 06:00 ROB BARON Jul 04, 2017 11:09
[2017-07-04] MEDS ORDERED: IBUPROFEN 400 MG TAB PO PRN (12:00)
[2017-07-04] MEDS: IBUPROFEN 400 MG TAB PO PRN (12:23)
[2017-07-04 14:00] VITALS: BP 119/68; RESP 20
--- NOTE | 2017-07-04 15:28 | RADRPT ---
Vent Rate: 71 bpm RR Interval: 0 msec CO Interval: 196 msec QRS Duration: 84 msec QT Interval: 400 msec QTC Interval: 434 msec P-R-T [place]: 45 - 24 - 53 degrees Normal sinus rhythm Normal ECG Electronically Signed By: Ho Collins [id number]
[2017-07-04 20:05] VITALS: BP 111/60; RESP 18
[2017-07-04] MEDS: ACETAMINOPHEN 325 MG TAB PO PRN (21:02)
--- NOTE | 2017-07-04 21:25 | PN ---
Date/Time of Note Date/Time of Note DATE: 07/04/17 TIME: 21:18 Assessment/Plan VTE Prophylaxis VTE Prophylaxis Intervention: ambulation Lines/Catheters IV [facility]ter Type (from [facility]): Peripheral IV Urinary Cath still in place: No Assessment/Plan Chief Complaint/Hosp Course 52-year-old female with recurrent urinary tract infection and infection that are resistant to oral antibiotic patient has ESBL in the urine and the renal ultrasound did show 2 cm bladder stone however the stone that is seen in the bladder would be a stone in the distal ureter or in a ureterocele. I did review the CT scan of the abdomen and pelvis and it appears the stone is in the bladder or in the distal ureter or in a ureterocele. For now she should continue the meropenem to treat her infection and most likely by Friday will be able to do a cystoscopy and break and remove the stone from either the bladder or the distal ureter or ureterocele. Problems: Subjective 24 Hr Interval Summary Constitutional: no complaints Eyes: no complaints ENT: no complaints Respiratory: no complaints Cardiovascular: no complaints Gastrointestinal: no complaints Genitourinary: dysuria Musculoskeletal: no complaints Skin: no complaints Neurologic: no complaints Exam/Review of Systems Vital Signs Vitals Vital Signs Date Time Temp Pulse Resp B/P Pulse Ox O2 Delivery O2 Flow Rate FiO2 07/04/17 20:05 97.8 86 18 111/60 97 07/01/17 22:39 Room Air Intake and Output 07/03/17 07/03/17 07/04/17 15:00 23:00 07:00 Intake Total 175 ml 500 ml 560 ml Balance 175 ml 500 ml 560 ml Exam Constitutional: alert, oriented Psych: no complaints Head: normocephalic Eyes: nl conjunctiva ENMT: nl external ears & nose Neck: supple Respiratory: normal air movement Cardiovascular: No edema Gastrointestinal: soft Genitourinary - Female: No CVA tenderness Extremities: No calf tenderness, No edema Results The patient was supposed to have a CT scan of the abdomen and pelvis here yesterday however she did have a CT scan of the abdomen and pelvis at [facility] at no charge therefore we did not do the CT scan here and she got the films on a CD and I reviewed it she does have a stone in the right kidney also the stone in the bladder for me it appears like it is in the distal ureter by being in a ureterocele or the intramural part of the ureter. I have to review this with the radiologist and see his opinion about that as the reading of the CT scan is not available. Result Diagram: 07/03/1762607/03/17626 Medications Medications Current Medications Losartan Potassium 25 mg 25 mg DAILY PO Last administered on 07/04/17 08:43; Admin Dose 25 MG; Start 07/02/17 at 09:00 Sodium Chloride (NS) 1,000 ml @ 50 mls/hr Q20H IV Last administered on 04:43; Admin Dose 50 MLS/HR; Start 07/01/17 at 17:01 Ondansetron HCl (Zofran Inj) 4 mg Q6H PRN IV NAUSEA AND/OR VOMITING; Start 07/01 at 17:30 Acetaminophen (Tylenol Tab) 650 mg Q6H PRN PO PAIN LEVEL 1-3 OR FEVER Last administered on 07/04/17 21:02; Admin Dose 650 MG; Start 07/01/17 at 17:30 Acetaminophen (Tylenol Supp) 650 mg Q6H PRN [place] PAIN LEVEL 1-3 OR FEVER; Start 07/01/17 at 17:30 Acetaminophen/ Hydrocodone Bitart ([place] (5/325)) 1 tab Q6H PRN PO MODERATE PAIN LEVEL 4-6; Start 07/01/17 at 17:30 Docusate Sodium (Colace) 100 mg Q12H PRN PO CONSTIPATION; Start 07/01/17 at 17: 30 Magnesium Hydroxide (Milk Of Mag) 30 ml DAILY PRN PO CONSTIPATION Last administered on 07/02/17 09:27; Admin Dose 30 ML; Start 07/01/17 at 17:30 Bisacodyl (Dulcolax) 5 mg DAILY PRN PO CONSTIPATION; Start 07/01/17 at 17:30 Zolpidem Tartrate 5 mg 5 mg QHS PRN PO SLEEP; Start 07/01/17 at 17:30 Meropenem/Sodium Chloride (Merrem 1 Gm/50 ml (Pmx)) 50 ml @ 100 mls/hr Q8 IVPB Last administered on 07/04/17 21:01; Admin Dose 100 MLS/HR; Start 07/01/17 at 21:00 Pantoprazole (Protonix Tab) 40 mg DAILY@06 PO Last administered on 07/04/17 05: 19; Admin Dose 40 MG; Start 07/03/17 at 06:00 Ibuprofen (Motrin) 400 mg Q6H PRN PO PAIN OR TEMP ABOVE 38C Last administered on 07/04/17 12:23; Admin Dose 400 MG; Start 07/04/17 at 12:00 TAVRAES MOTT MD Jul 04, 2017 21:25
[2017-07-05] MEDS: SOD CHLORIDE 0.9% 1,000 ML IV SCH ×2 (02:12→21:23)
[2017-07-05 02:58] VITALS: BP 121/79; RESP 18
[2017-07-05] MEDS: PANTOPRAZOLE (EC) 40 MG TAB PO SCH (05:31)
[2017-07-05] MEDS: MEROPENEM 1 GM/50ML(PMX) 50 ML IVPB SCH ×2 (05:31→13:24)
[2017-07-05 08:00] VITALS: BP 137/69; RESP 18
[2017-07-05] MEDS: LOSARTAN 25 MG TAB PO SCH (09:08)
[2017-07-05] MEDS: MAGNESIUM HYDROXIDE 30ML CUP PO PRN (10:52)
[2017-07-05] MEDS: IBUPROFEN 400 MG TAB PO PRN (12:21)
[2017-07-05 14:00] VITALS: BP 120/67; RESP 20
--- NOTE | 2017-07-05 14:34 | PN ---
Date/Time of Note Date/Time of Note DATE: 07/05/17 TIME: 14:27 Assessment/Plan VTE Prophylaxis VTE Prophylaxis Intervention: ambulation Lines/Catheters IV C[facility]ter Type (from [facility]): Peripheral IV Urinary Cath still in place: No Assessment/Plan Chief Complaint/Hosp Course 52-year-old female with recurrent urinary tract infection and infections that are resistant to oral antibiotic. patient has ESBL in the urine and the renal ultrasound did show 2 cm stone however the stone that is seen is notin the bladder but in the distal ureter. 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 I did explain that to the patient and most likely on Friday or Friday we will do cystoscopy ureteroscopy laser lithotripsy and remove that stone from the ureter she also does have a stone in the lower pole of the right kidney but that one would be left alone for the present and will have to take care of it at a later date . Problems: Subjective 24 Hr Interval Summary Constitutional: no complaints Eyes: no complaints ENT: no complaints Respiratory: no complaints Cardiovascular: no complaints Gastrointestinal: no complaints Genitourinary: dysuria Musculoskeletal: back pain Skin: no complaints Neurologic: no complaints Lymphatic: no complaints Exam/Review of Systems Vital Signs Vitals Vital Signs Date Time Temp Pulse Resp B/P Pulse Ox O2 Delivery O2 Flow Rate FiO2 07/05/17 08:00 98.6 76 18 137/69 98 07/01/17 22:39 Room Air Intake and Output 07/04/17 07/04/17 07/05/17 15:00 23:00 07:00 Intake Total 50 ml 600 ml 900 ml Balance 50 ml 600 ml 900 ml Exam Constitutional: alert, oriented Psych: anxiety Head: normocephalic Eyes: nl conjunctiva ENMT: nl external ears & nose Neck: non-tender, supple Respiratory: normal air movement Cardiovascular: regular rate and rhythm Gastrointestinal: nl liver, spleen Genitourinary - Female: nl external genitalia Extremities: normal pulses, No calf tenderness, No edema Skin: nl turgor Results Result Diagram: 07/03/17 0627 07/03/17 0627 Results 24 hrs Laboratory Tests Test 07/05/17 05:16 Lactic Acid Level 2.8 *H Medications Medications Current Medications Losartan Potassium 25 mg 25 mg DAILY PO Last administered on 07/05/17 09:08; Admin Dose 25 MG; Start 07/02/17 at 09:00 Sodium Chloride (NS) 1,000 ml @ 50 mls/hr Q20H IV Last administered on 02:12; Admin Dose 50 MLS/HR; Start 07/01/17 at 17:01 Ondansetron HCl (Zofran Inj) 4 mg Q6H PRN IV NAUSEA AND/OR VOMITING; Start 07/01 at 17:30 Acetaminophen (Tylenol Tab) 650 mg Q6H PRN PO PAIN LEVEL 1-3 OR FEVER Last administered on 07/04/17 21:02; Admin Dose 650 MG; Start 07/01/17 at 17:30 Acetaminophen (Tylenol Supp) 650 mg Q6H PRN [place] PAIN LEVEL 1-3 OR FEVER; Start 07/01/17 at 17:30 Acetaminophen/ Hydrocodone Bitart ([place] (5/325)) 1 tab Q6H PRN PO MODERATE PAIN LEVEL 4-6; Start 07/01/17 at 17:30 Docusate Sodium (Colace) 100 mg Q12H PRN PO CONSTIPATION; Start 07/01/17 at 17: 30 Magnesium Hydroxide (Milk Of Mag) 30 ml DAILY PRN PO CONSTIPATION Last administered on 07/05/17 10:52; Admin Dose 30 ML; Start 07/01/17 at 17:30 Bisacodyl (Dulcolax) 5 mg DAILY PRN PO CONSTIPATION; Start 07/01/17 at 17:30 Zolpidem Tartrate (Ambien) 5 mg QHS PRN PO SLEEP; Start 07/01/17 at 17:30 Pantoprazole (Protonix Tab) 40 mg DAILY@06 PO Last administered on 07/05/17 05: 31; Admin Dose 40 MG; Start 07/03/17 at 06:00 Ibuprofen 400 mg 400 mg Q6H PRN PO PAIN OR TEMP ABOVE 38C Last administered on 07/05/17 12:21; Admin Dose 400 MG; Start 07/04/17 at 12:00 Ertapenem/Sodium Chloride (Invanz/NS) 100 ml @ 200 mls/hr Q24H IVPB ; Start 07/05/17 at 15:00 TAVARES MOTT MD Jul 05, 2017 14:34
[2017-07-05] MEDS: ERTAPENEM SODIUM 1 GM in SOD CHLORIDE 0.9% 100 ML IVPB SCH (15:47)
[2017-07-05 20:40] VITALS: BP 143/76; RESP 18
[2017-07-05] MEDS: ACETAMINOPHEN 325 MG TAB PO PRN (21:23)
--- NOTE | 2017-07-05 23:47 | PN ---
Date/Time of Note Date/Time of Note DATE: 07/05/17 TIME: 13:44 Assessment/Plan VTE Prophylaxis VTE Prophylaxis Intervention: ambulation Lines/Catheters IV Catheter Type (from [facility]): Peripheral IV Urinary Cath still in place: No Assessment/Plan Chief Complaint/Hosp Course 1. The patient has bacterial urinary tract infection (UTI). 2. Multi drug resistant urinary tract infection (UTI). 3 esbl urine 4 bladder stone Problems: Assessment/Plan 1. Continue IV fluids 2. Possible lithotripsy on Friday Dr Judd 3. ID consult Subjective 24 Hr Interval Summary Constitutional: no complaints Respiratory: no complaints Musculoskeletal: back pain (right side flank) Exam/Review of Systems Vital Signs Vitals Vital Signs Date Time Temp Pulse Resp B/P Pulse Ox O2 Delivery O2 Flow Rate FiO2 07/05/17 20:40 97.6 86 18 143/76 97 07/01/17 22:39 Room Air Intake and Output 07/04/17 07/04/17 07/05/17 15:00 23:00 07:00 Intake Total 50 ml 600 ml 900 ml Balance 50 ml 600 ml 900 ml Exam Constitutional: alert, oriented Eyes: nl conjunctiva ENMT: nl external ears & nose Neck: supple Respiratory: clear to auscultation Cardiovascular: regular rate and rhythm Results Result Diagram: 07/03/1762607/03/17626 Results 24 hrs Laboratory Tests Test 07/05/17 05:16 Lactic Acid Level 2.8 *H Medications Medications Current Medications Losartan Potassium 25 mg 25 mg DAILY PO Last administered on 07/05/17 09:08; Admin Dose 25 MG; Start 07/02/17 at 09:00 Sodium Chloride (NS) 1,000 ml @ 50 mls/hr Q20H IV Last administered on 21:23; Admin Dose 50 MLS/HR; Start 07/01/17 at 17:01 Ondansetron HCl (Zofran Inj) 4 mg Q6H PRN IV NAUSEA AND/OR VOMITING; Start 07/01 at 17:30 Acetaminophen (Tylenol Tab) 650 mg Q6H PRN PO PAIN LEVEL 1-3 OR FEVER Last administered on 07/05/17 21:23; Admin Dose 650 MG; Start 07/01/17 at 17:30 Acetaminophen (Tylenol Supp) 650 mg Q6H PRN [place] PAIN LEVEL 1-3 OR FEVER; Start 07/01/17 at 17:30 Acetaminophen/ Hydrocodone Bitart ([place] (5/325)) 1 tab Q6H PRN PO MODERATE PAIN LEVEL 4-6; Start 07/01/17 at 17:30 Docusate Sodium (Colace) 100 mg Q12H PRN PO CONSTIPATION; Start 07/01/17 at 17: 30 Magnesium Hydroxide (Milk Of Mag) 30 ml DAILY PRN PO CONSTIPATION Last administered on 07/05/17 10:52; Admin Dose 30 ML; Start 07/01/17 at 17:30 Bisacodyl (Dulcolax) 5 mg DAILY PRN PO CONSTIPATION; Start 07/01/17 at 17:30 Zolpidem Tartrate (Ambien) 5 mg QHS PRN PO SLEEP; Start 07/01/17 at 17:30 Pantoprazole (Protonix Tab) 40 mg DAILY@06 PO Last administered on 07/05/17 05: 31; Admin Dose 40 MG; Start 07/03/17 at 06:00 Ibuprofen 400 mg 400 mg Q6H PRN PO PAIN OR TEMP ABOVE 38C Last administered on 07/05/17 12:21; Admin Dose 400 MG; Start 07/04/17 at 12:00 Ertapenem/Sodium Chloride (Invanz/NS) 100 ml @ 200 mls/hr Q24H IVPB Last administered on 07/05/17 15:47; Admin Dose 200 MLS/HR; Start 07/05/17 at 15:00 ROB BARON Jul 05, 2017 23:47
[2017-07-06 02:00] VITALS: BP 123/76; RESP 19
[2017-07-06] MEDS: PANTOPRAZOLE (EC) 40 MG TAB PO SCH (05:10)
[2017-07-06 05:58] LABS: BASOPHIL # 0.1 10^3/ul (0.0-0.1); BASOPHILS % 0.8 % (0.0-2.0); EOSINOPHILS # 0.2 10^3/ul (0.0-0.5); EOSINOPHILS % 1.9 % (0.0-7.0); HEMATOCRIT 37.2 % (37.0-47.0); HEMOGLOBIN 12.6 g/dl (12.0-16.0); LYMPHOCYTES # 2.2 10^3/ul (0.8-2.9); LYMPHOCYTES % 28.1 % (15.0-51.0); MEAN CORPUSCULAR HEMOGLOBIN 29.2 pg (29.0-33.0); MEAN CORPUSCULAR HGB CONC 33.9 g/dl (32.0-37.0); MEAN CORPUSCULAR VOLUME 86.1 fl (82.0-101.0); MEAN PLATELET VOLUME 9.4 fl (7.4-10.4); MONOCYTE # 0.5 10^3/ul (0.3-0.9); MONOCYTES % 6.7 % (0.0-11.0); NEUTROPHILS % 62.2 % (39.0-77.0); PLATELET COUNT 379 10^3/UL (140-415); RED BLOOD COUNT 4.32 10^6/ul (4.20-5.40); RED CELL DISTRIBUTION WIDTH 12.7 % (11.5-14.5); WHITE BLOOD COUNT 7.9 10^3/ul (4.8-10.8)
[2017-07-06 06:27] LABS: CALCIUM 8.6 mg/dl (8.4-10.2); CREATININE 0.44 mg/dl (0.44-1.00); POTASSIUM 4.1 mmol/L (3.5-5.1)
[2017-07-06 08:15] VITALS: BP 138/86; RESP 18
[2017-07-06] MEDS: LOSARTAN 25 MG TAB PO SCH (08:28)
[2017-07-06] MEDS: MAGNESIUM HYDROXIDE 30ML CUP PO PRN (10:19)
[2017-07-06] MEDS: ERTAPENEM SODIUM 1 GM in SOD CHLORIDE 0.9% 100 ML IVPB SCH (14:35)
[2017-07-06 14:56] VITALS: BP 167/102; RESP 20
[2017-07-06] MEDS: SOD CHLORIDE 0.9% 1,000 ML IV SCH ×2 (16:07→17:41)
--- NOTE | 2017-07-06 19:14 | PN ---
Date/Time of Note Date/Time of Note DATE: 07/06/17 TIME: 19:11 Assessment/Plan VTE Prophylaxis VTE Prophylaxis Intervention: contraindicated Lines/Catheters IV Catheter Type (from [facility]): Peripheral IV Urinary Cath still in place: No Assessment/Plan Chief Complaint/Hosp Course 1. The patient has bacterial urinary tract infection (UTI). 2. Multi drug resistant urinary tract infection (UTI). 3 esbl urine 4 2 cm ureter stone 5 Moderate rt hydronephrosis Problems: Assessment/Plan 1. Continue IV fluids 2. Possible lithotripsy on Friday Dr Judd 3. Pain control 4 iv meropenam Problems: Subjective 24 Hr Interval Summary Free Text/Dictation Pt feels better today Plan for cystoscopy with laser lithotripsy on Friday Exam/Review of Systems Vital Signs Vitals Vital Signs Date Time Temp Pulse Resp B/P Pulse Ox O2 Delivery O2 Flow Rate FiO2 07/06/17 14:56 98.5 83 20 167/102 99 Intake and Output 07/05/17 07/05/17 07/06/17 15:00 23:00 07:00 Intake Total 50 ml 2530 ml 700 ml Balance 50 ml 2530 ml 700 ml Exam Gen: awake,alert Neck:supple CVS:Regular Abdomen:soft, non tender Ext: no edema Results Result Diagram: 07/06/1750907/06/17509 Results 24 hrs Laboratory Tests Test 07/06/17 05:10 White Blood Count 7.9 Red Blood Count 4.32 Hemoglobin 12.6 Hematocrit 37.2 Mean Corpuscular Volume 86.1 Mean Corpuscular Hemoglobin 29.2 Mean Corpuscular Hemoglobin Concent 33.9 Red Cell Distribution Width 12.7 Platelet Count 379 Mean Platelet Volume 9.4 Neutrophils % 62.2 Lymphocytes % 28.1 Monocytes % 6.7 Eosinophils % 1.9 Basophils % 0.8 Nucleated Red Blood Cells % 0.0 Neutrophils # (Manual) 4.9 Lymphocytes # 2.2 Monocytes # 0.5 Eosinophils # 0.2 Basophils # 0.1 Nucleated Red Blood Cells # 0.0 Sodium Level 135 Potassium Level 4.1 Chloride Level 106 Carbon Dioxide Level 23 Anion Gap 10 Blood Urea Nitrogen 12 Creatinine 0.44 Glucose Level 95 Lactic Acid Level 2.4 *H Calcium Level 8.6 Medications Medications Current Medications Losartan Potassium 25 mg 25 mg DAILY PO Last administered on 07/06/17 08:28; Admin Dose 25 MG; Start 07/02/17 at 09:00 Sodium Chloride (NS) 1,000 ml @ 50 mls/hr Q20H IV Last administered on 17:41; Admin Dose 50 MLS/HR; Start 07/01/17 at 17:01 Ondansetron HCl (Zofran Inj) 4 mg Q6H PRN IV NAUSEA AND/OR VOMITING; Start 07/01 at 17:30 Acetaminophen (Tylenol Tab) 650 mg Q6H PRN PO PAIN LEVEL 1-3 OR FEVER Last administered on 07/05/17 21:23; Admin Dose 650 MG; Start 07/01/17 at 17:30 Acetaminophen (Tylenol Supp) 650 mg Q6H PRN [place] PAIN LEVEL 1-3 OR FEVER; Start 07/01/17 at 17:30 Acetaminophen/ Hydrocodone Bitart ([place] (5/325)) 1 tab Q6H PRN PO MODERATE PAIN LEVEL 4-6; Start 07/01/17 at 17:30 Docusate Sodium (Colace) 100 mg Q12H PRN PO CONSTIPATION; Start 07/01/17 at 17: 30 Magnesium Hydroxide (Milk Of Mag) 30 ml DAILY PRN PO CONSTIPATION Last administered on 07/05/17 10:52; Admin Dose 30 ML; Start 07/01/17 at 17:30 Bisacodyl (Dulcolax) 5 mg DAILY PRN PO CONSTIPATION; Start 07/01/17 at 17:30 Zolpidem Tartrate (Ambien) 5 mg QHS PRN PO SLEEP; Start 07/01/17 at 17:30 Pantoprazole (Protonix Tab) 40 mg DAILY@06 PO Last administered on 07/06/17 05 :10; Admin Dose 40 MG; Start 07/03/17 at 06:00 Ibuprofen 400 mg 400 mg Q6H PRN PO PAIN OR TEMP ABOVE 38C Last administered on 07/05/17 12:21; Admin Dose 400 MG; Start 07/04/17 at 12:00 Ertapenem/Sodium Chloride (Invanz/NS) 100 ml @ 200 mls/hr Q24H IVPB Last administered on 07/06/17 14:35; Admin Dose 200 MLS/HR; Start 07/05/17 at 15:00 SHERI SULLIVAN MD Jul 06, 2017 19:14
[2017-07-06 20:00] VITALS: BP 125/77; RESP 18
--- NOTE | 2017-07-07 00:45 | CONS ---
DATE OF ADMISSION: 07/01/2017 DATE OF CONSULTATION: 07/06/2017 Dr. Dannie Shaw dictating an infectious disease consultation for Dr. Harvey Phillip. HISTORY OF PRESENT ILLNESS: The patient is a 52-year-old, white female, who was admitted with a chief complaint of a multidrug- resistant urinary tract infection. The patient has had frequent urinary tract infections and has finally grown E coli 10 to the 5th, which is sensitive only to parental antibiotics and those include amikacin, cefepime and imipenem. Her white count on admission was 8100. Urinalysis: Yellow, pH 6, specific gravity 1.004, +1 leukocyte esterase, 5 RBCs, 20 WBCs, positive hemoglobin. Chest x-ray was clear. The patient had a ultrasound, which revealed [id number] hydronephrosis on the left side, mild hydronephrosis, a 2 cm bladder calculus. PAST MEDICAL HISTORY: Remarkable for hysterectomy, multiple urinary tract infections, obesity, and hypertension. PHYSICAL EXAMINATION: GENERAL APPEARANCE: Reveals in an obese white female, lying in bed, in no acute distress. HEENT: Pupils equal, round, react to light. Extraocular movements are full. NECK: Supple. No jugular venous distention. CHEST: Increased diameter. Clear to auscultation. HEART: Regular without gallop, murmur, or rub. ABDOMEN: Obese, soft. No palpable organs or masses. EXTREMITIES: Show no edema, cyanosis, or clubbing. IMPRESSION: 1. Urinary tract infection with extended-spectrum beta- lactamase Escherichia coli. 2. A 2 cm bladder stone in the right ureterovesical junction and duplication of right ureter. 3. Left renal nephrolithiasis. 4. Hypertension. 5. Obesity. RECOMMENDATIONS: Proceed with removal of the bladder stone by Dr. Judd and continue with the present carbapenem treatment. The patient should drink 2000 cc or of more fluid per day or enough to make her urine clear and/or very light yellow in order to prevent further stone formation and also to keep the urine sterile from resistant organisms. Thank you for referring this interesting patient to Dr. Harvey Phillip. Dictated By: Dannie Shaw MD /curt/karl /Document#: [id number]
[2017-07-07 02:00] VITALS: BP 120/75; RESP 19
[2017-07-07 06:09] LABS: BASOPHILS % 0.5 % (0.0-2.0); EOSINOPHILS # 0.2 10^3/ul (0.0-0.5); EOSINOPHILS % 2.2 % (0.0-7.0); HEMATOCRIT 35.7 % (37.0-47.0); HEMOGLOBIN 12.1 g/dl (12.0-16.0); LYMPHOCYTES # 2.2 10^3/ul (0.8-2.9); LYMPHOCYTES % 26.7 % (15.0-51.0); MEAN CORPUSCULAR HEMOGLOBIN 29.3 pg (29.0-33.0); MEAN CORPUSCULAR HGB CONC 33.9 g/dl (32.0-37.0); MEAN CORPUSCULAR VOLUME 86.4 fl (82.0-101.0); MEAN PLATELET VOLUME 9.3 fl (7.4-10.4); MONOCYTE # 0.6 10^3/ul (0.3-0.9); MONOCYTES % 7.3 % (0.0-11.0); NEUTROPHILS % 63.1 % (39.0-77.0); PLATELET COUNT 368 10^3/UL (140-415); RED BLOOD COUNT 4.13 10^6/ul (4.20-5.40); RED CELL DISTRIBUTION WIDTH 12.4 % (11.5-14.5); WHITE BLOOD COUNT 8.3 10^3/ul (4.8-10.8)
[2017-07-07] MEDS: PANTOPRAZOLE (EC) 40 MG TAB PO SCH (06:19)
[2017-07-07 06:52] LABS: ALBUMIN 3.3 g/dl (3.3-4.9); ALBUMIN/GLOBULIN RATIO 1.17; BILIRUBIN,INDIRECT 0.1 mg/dl (0-1.1); BILIRUBIN,TOTAL 0.1 mg/dl (0.2-1.3); CALCIUM 8.7 mg/dl (8.4-10.2); CREATININE 0.45 mg/dl (0.44-1.00); TOTAL PROTEIN 6.1 g/dl (6.1-8.1)
[2017-07-07 08:00] VITALS: BP 171/90; RESP 18
[2017-07-07] MEDS: LOSARTAN 25 MG TAB PO SCH (10:19)
--- NOTE | 2017-07-07 12:33 | PN ---
Date/Time of Note Date/Time of Note DATE: 07/07/17 TIME: 12:28 Assessment/Plan VTE Prophylaxis VTE Prophylaxis Intervention: ambulation Lines/Catheters IV Catheter Type (from [facility]): Peripheral IV Urinary Cath still in place: No Assessment/Plan Chief Complaint/Hosp Course 52-year-old female with recurrent urinary tract infection and infections that are resistant to oral antibiotic. patient has ESBL in the urine and the renal ultrasound did show 2 cm stone however the stone that is seen is not in the bladder but in the distal ureter. 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 I did explain that to the patient and on Friday i will do cystoscopy, ureteroscopy laser lithotripsy and remove that stone from the ureter and from the bladder if the stone is in the bladder.she also does have a stone in the lower pole of the right kidney but that one would be left alone for the present and will have to take care of it at a later date . Patient did understand the planned procedure. I answered all her questions and she is agreeable to proceed. The procedure is scheduled for tomorrow at 12:30 PM Problems: Subjective 24 Hr Interval Summary Constitutional: no complaints Eyes: no complaints ENT: no complaints Gastrointestinal: no complaints Genitourinary: No dysuria, No flank pain, No hematuria Musculoskeletal: no complaints Skin: no complaints Neurologic: no complaints Endocrine: no complaints Exam/Review of Systems Vital Signs Vitals Vital Signs Date Time Temp Pulse Resp B/P Pulse Ox O2 Delivery O2 Flow Rate FiO2 07/07/17 08:00 97.7 18 171/90 96 07/07/17 02:00 79 Intake and Output 07/06/17 07/06/17 07/07/17 14:59 22:59 06:59 Intake Total 2880 ml 940 ml Balance 2880 ml 940 ml Exam Constitutional: oriented Psych: no complaints Head: normocephalic Eyes: nl conjunctiva ENMT: nl external ears & nose Neck: supple Respiratory: normal air movement Cardiovascular: regular rate and rhythm Gastrointestinal: soft, No tender Genitourinary - Female: other (Urine is clear), No CVA tenderness Extremities: No calf tenderness, No edema Results Result Diagram: 07/07/17 0521 07/07/17 0521 Results 24 hrs Laboratory Tests Test 07/07/17 05:21 White Blood Count 8.3 Red Blood Count 4.13 L Hemoglobin 12.1 Hematocrit 35.7 L Mean Corpuscular Volume 86.4 Mean Corpuscular Hemoglobin 29.3 Mean Corpuscular Hemoglobin Concent 33.9 Red Cell Distribution Width 12.4 Platelet Count 368 Mean Platelet Volume 9.3 Neutrophils % 63.1 Lymphocytes % 26.7 Monocytes % 7.3 Eosinophils % 2.2 Basophils % 0.5 Nucleated Red Blood Cells % 0.0 Neutrophils # (Manual) 5.2 Lymphocytes # 2.2 Monocytes # 0.6 Eosinophils # 0.2 Basophils # 0.0 Nucleated Red Blood Cells # 0.0 Sodium Level 136 Potassium Level 4.0 Chloride Level 105 Carbon Dioxide Level 25 Anion Gap 10 Blood Urea Nitrogen 13 Creatinine 0.45 Glucose Level 92 Calcium Level 8.7 Total Bilirubin 0.1 L Direct Bilirubin 0.00 Indirect Bilirubin 0.1 Aspartate Amino Transf (AST/SGOT) 27 Alanine Aminotransferase (ALT/SGPT) 41 Alkaline Phosphatase 79 Total Protein 6.1 Albumin 3.3 Globulin 2.80 Albumin/Globulin Ratio 1.17 Medications Medications Current Medications Losartan Potassium 25 mg 25 mg DAILY PO Last administered on 07/07/17 10:19; Admin Dose 25 MG; Start 07/02/17 at 09:00 Sodium Chloride (NS) 1,000 ml @ 50 mls/hr Q20H IV Last administered on 17:41; Admin Dose 50 MLS/HR; Start 07/01/17 at 17:01 Ondansetron HCl (Zofran Inj) 4 mg Q6H PRN IV NAUSEA AND/OR VOMITING; Start 07/01 at 17:30 Acetaminophen (Tylenol Tab) 650 mg Q6H PRN PO PAIN LEVEL 1-3 OR FEVER Last administered on 07/05/17 21:23; Admin Dose 650 MG; Start 07/01/17 at 17:30 Acetaminophen (Tylenol Supp) 650 mg Q6H PRN [place] PAIN LEVEL 1-3 OR FEVER; Start 07/01/17 at 17:30 Acetaminophen/ Hydrocodone Bitart ([place] (5/325)) 1 tab Q6H PRN PO MODERATE PAIN LEVEL 4-6; Start 07/01/17 at 17:30 Docusate Sodium (Colace) 100 mg Q12H PRN PO CONSTIPATION; Start 07/01/17 at 17: 30 Magnesium Hydroxide (Milk Of Mag) 30 ml DAILY PRN PO CONSTIPATION Last administered on 07/05/17 10:52; Admin Dose 30 ML; Start 07/01/17 at 17:30 Bisacodyl (Dulcolax) 5 mg DAILY PRN PO CONSTIPATION; Start 07/01/17 at 17:30 Zolpidem Tartrate (Ambien) 5 mg QHS PRN PO SLEEP; Start 07/01/17 at 17:30 Pantoprazole (Protonix Tab) 40 mg DAILY@06 PO Last administered on 07/07/17 06 :19; Admin Dose 40 MG; Start 07/03/17 at 06:00 Ibuprofen 400 mg 400 mg Q6H PRN PO PAIN OR TEMP ABOVE 38C Last administered on 07/05/17 12:21; Admin Dose 400 MG; Start 07/04/17 at 12:00 Ertapenem/Sodium Chloride (Invanz/NS) 100 ml @ 200 mls/hr Q24H IVPB Last administered on 07/06/17 14:35; Admin Dose 200 MLS/HR; Start 07/05/17 at 15:00 TAVARES MOTT MD Jul 07, 2017 12:33
[2017-07-07] MEDS: SOD CHLORIDE 0.9% 1,000 ML IV SCH (13:47)
[2017-07-07 14:00] VITALS: BP 165/93; RESP 18
[2017-07-07] MEDS: ERTAPENEM SODIUM 1 GM in SOD CHLORIDE 0.9% 100 ML IVPB SCH (15:18)
--- NOTE | 2017-07-07 18:53 | PN ---
Date/Time of Note Date/Time of Note DATE: 07/07/17 TIME: 18:53 Assessment/Plan VTE Prophylaxis VTE Prophylaxis Intervention: other Lines/Catheters IV [facility] Type [facility] Peripheral IV Urinary Cath still in place: No Assessment/Plan Chief Complaint/Hosp Course IMPRESSION: 1. The patient has bacterial urinary tract infection (UTI). 2. Multi drug resistant urinary tract infection (UTI). 3 esbl uti 4 bladder stone/KID STONE PLAN ANTIBIOTIC SURGERY SOON Problems: Subjective 24 Hr Interval Summary Cardiovascular: no complaints Gastrointestinal: no complaints Genitourinary: no complaints Exam/Review of Systems Vital Signs Vitals Vital Signs Date Time Temp Pulse Resp B/P Pulse Ox O2 Delivery O2 Flow Rate FiO2 07/07/17 14:00 98.1 94 18 165/93 100 Intake and Output 07/06/17 07/06/17 07/07/17 15:00 23:00 07:00 Intake Total 2880 ml 940 ml Balance 2880 ml 940 ml Exam Respiratory: clear to auscultation Cardiovascular: regular rate and rhythm Gastrointestinal: soft Musculoskeletal: nl extremities to inspection Extremities: normal pulses Results Result Diagram: 07/07/17 0521 07/07/17 0521 Results 24 hrs Laboratory Tests Test 07/07/17 05:21 White Blood Count 8.3 Red Blood Count 4.13 L Hemoglobin 12.1 Hematocrit 35.7 L Mean Corpuscular Volume 86.4 Mean Corpuscular Hemoglobin 29.3 Mean Corpuscular Hemoglobin Concent 33.9 Red Cell Distribution Width 12.4 Platelet Count 368 Mean Platelet Volume 9.3 Neutrophils % 63.1 Lymphocytes % 26.7 Monocytes % 7.3 Eosinophils % 2.2 Basophils % 0.5 Nucleated Red Blood Cells % 0.0 Neutrophils # (Manual) 5.2 Lymphocytes # 2.2 Monocytes # 0.6 Eosinophils # 0.2 Basophils # 0.0 Nucleated Red Blood Cells # 0.0 Sodium Level 136 Potassium Level 4.0 Chloride Level 105 Carbon Dioxide Level 25 Anion Gap 10 Blood Urea Nitrogen 13 Creatinine 0.45 Glucose Level 92 Calcium Level 8.7 Total Bilirubin 0.1 L Direct Bilirubin 0.00 Indirect Bilirubin 0.1 Aspartate Amino Transf (AST/SGOT) 27 Alanine Aminotransferase (ALT/SGPT) 41 Alkaline Phosphatase 79 Total Protein 6.1 Albumin 3.3 Globulin 2.80 Albumin/Globulin Ratio 1.17 Medications Medications Current Medications Losartan Potassium 25 mg 25 mg DAILY PO Last administered on 07/07/17 10:19; Admin Dose 25 MG; Start 07/02/17 at 09:00 Sodium Chloride (NS) 1,000 ml @ 50 mls/hr Q20H IV Last administered on 13:47; Admin Dose 50 MLS/HR; Start 07/01/17 at 17:01 Ondansetron HCl (Zofran Inj) 4 mg Q6H PRN IV NAUSEA AND/OR VOMITING; Start 07/01 at 17:30 Acetaminophen (Tylenol Tab) 650 mg Q6H PRN PO PAIN LEVEL 1-3 OR FEVER Last administered on 07/05/17 21:23; Admin Dose 650 MG; Start 07/01/17 at 17:30 Acetaminophen (Tylenol Supp) 650 mg Q6H PRN [place] PAIN LEVEL 1-3 OR FEVER; Start 07/01/17 at 17:30 Acetaminophen/ Hydrocodone Bitart ([place] (5/325)) 1 tab Q6H PRN PO MODERATE PAIN LEVEL 4-6; Start 07/01/17 at 17:30 Docusate Sodium (Colace) 100 mg Q12H PRN PO CONSTIPATION; Start 07/01/17 at 17: 30 Magnesium Hydroxide (Milk Of Mag) 30 ml DAILY PRN PO CONSTIPATION Last administered on 07/05/17 10:52; Admin Dose 30 ML; Start 07/01/17 at 17:30 Bisacodyl (Dulcolax) 5 mg DAILY PRN PO CONSTIPATION; Start 07/01/17 at 17:30 Zolpidem Tartrate (Ambien) 5 mg QHS PRN PO SLEEP; Start 07/01/17 at 17:30 Pantoprazole (Protonix Tab) 40 mg DAILY@06 PO Last administered on 07/07/17 06 :19; Admin Dose 40 MG; Start 07/03/17 at 06:00 Ibuprofen 400 mg 400 mg Q6H PRN PO PAIN OR TEMP ABOVE 38C Last administered on 07/05/17 12:21; Admin Dose 400 MG; Start 07/04/17 at 12:00 Ertapenem/Sodium Chloride (Invanz/NS) 100 ml @ 200 mls/hr Q24H IVPB Last administered on 07/07/17 15:18; Admin Dose 200 MLS/HR; Start 07/05/17 at 15:00 NICOLAS BARILLAS MD Jul 07, 2017 18:53
[2017-07-07 20:36] VITALS: BP 108/62; RESP 18
--- NOTE | 2017-07-07 21:57 | PN ---
DATE: 07/07/2017 SUBJECTIVE DATA: No events overnight. No fevers. Patient looks comfortable. LABORATORY AND DIAGNOSTIC DATA: WBC 8.3, no shift, no bands. BUN 13, creatinine 0.45. Lactic acid yesterday was 2.4. MICROBIOLOGY: Urine culture grew E coli, ESBL. ANTIMICROBIAL: Invanz. PHYSICAL EXAMINATION: GENERAL: Well developed, middle-aged, Italian woman who is alert, in no distress. HEENT: Head atraumatic, normocephalic. Sclerae anicteric. Buccal mucosa pink. NECK: Supple. CHEST: Chest rise symmetrical. Breath sounds clear. HEART: S1, S2. ABDOMEN: Soft, bowel sounds present. EXTREMITIES: Without cyanosis. ASSESSMENT: 1. Escherichia coli, extended beta spectrum lactamase (ESBL) urinary tract infection (UTI). 2. Obstructive uropathy. 3. Hypertension. PLAN: 1. The patient remains stable. 2. Continue present care. 3. Antibiotics. 4. Await for cystoscopy tomorrow. Dictated By: Jose Miguel Grier NP /curt/yeni /Document#: [id number]
[2017-07-08] VITALS (14 sets, daily range): BP systolic 117–149; BP diastolic 69–81; PULSE 42–98; RESP 12–18
[2017-07-08] MEDS: PANTOPRAZOLE (EC) 40 MG TAB PO SCH (04:34)
[2017-07-08] MEDS ORDERED: EPHEDrine SULFATE 50 MG/5 ML SYG ONE (07:00)
[2017-07-08] MEDS: LOSARTAN 25 MG TAB PO SCH ×2 (08:18→15:45)
[2017-07-08] MEDS: SOD CHLORIDE 0.9% 1,000 ML IV SCH (08:51)
--- NOTE | 2017-07-08 10:11 | HPN ---
Date/Time of Note Date/Time of Note DATE: 07/08/17 TIME: 10:11 Interval H&P Admission Note Pt. seen H&P reviewed: No system changes TAVARES MOTT MD Jul 08, 2017 10:11
[2017-07-08] MEDS ORDERED: MIDAZOLAM 1 MG/ML 2 ML INJ ONE (12:35)
[2017-07-08] MEDS ORDERED: PROPOFOL 20 ML ONE (12:35)
[2017-07-08] MEDS ORDERED: LIDOCAINE 2% (SDV) 5 ML INJ ONE (12:35)
[2017-07-08] MEDS ORDERED: DEXAMETHASONE 4 MG/ML 1 ML INJ ONE (12:44)
[2017-07-08] MEDS ORDERED: ONDANSETRON 4 MG INJ ONE (12:44)
[2017-07-08] MEDS ORDERED: FAMOTIDINE 20 MG INJ ONE (12:46)
[2017-07-08] MEDS ORDERED: FENTAnyl 50 MCG/ML VIAL ONE (12:55)
[2017-07-08] MEDS ORDERED: MEPERIDINE 25 MG INJ IV PRN (13:30)
[2017-07-08] MEDS ORDERED: ONDANSETRON 4 MG INJ IV PRN (13:30)
[2017-07-08] MEDS ORDERED: PROCHLORPERAZINE 10 MG INJ IV PRN (13:30)
[2017-07-08] MEDS ORDERED: FENTAnyl 50 MCG/ML VIAL IV PRN (13:30)
[2017-07-08] MEDS ORDERED: HYDROmorphONE (0.2 MG/ML) 10ML SYG IV PRN (13:30)
--- NOTE | 2017-07-08 14:09 | OPR ---
Date/Time of Note Date/Time of Note DATE: 07/08/17 TIME: 14:01 Operative Report Procedure Date: Jul 08, 2017 Preoperative Diagnosis Distal right ureteral stone, stone could be in the ureterocele. Also the stone could be in the bladder but most likely in the distal ureterin the ureterocele Postoperative Diagnosis Stone in the distal right ureter in a ureterocele Operation Performed Cystoscopy, unroofing of the right ureterocele, right ureteroscopy laser lithotripsy removal of the stone from the distal ureter after fragmenting it was a holmium laser and also fragmenting additional pieces in the bladder and removing them Surgeon: TAVARES MOTT MD Anesthesia Type: general Anesthesiologist: GURDEEP AWAD MD Estimated Blood Loss: minimal Transfusion Required: no Specimens Stone fragments Complications: no Pt Condition Post Procedure: stable Indications Distal right ureteral stone with obstruction and recurrent urinary tract infection with E. coli ESBL Operative\Procedure Findings The patient was brought to the operating room and general anesthesia was induced. The patient was positioned in the lithotomy position. The genital area was prepped and draped in the usual sterile manner. The patient has been on antibiotic and she did not need any additional one at the start of the procedure. #23 [place] cystoscope sheath was introduced into the bladder and urine was collected for culture and sensitivity. Upon inspection of the bladder one could see the bulging of the ureterocele and the stone inside of it no ureteral orifice could be identified on the right side because of the ureterocele. I passed a 5 [place] open ended ureteral catheter and through it I tried to pass a Glidewire into the right ureteral orifice but that was very difficult because of the stretching and the deformity of the right ureteral orifice. Therefore I used the 365 m holmium laser fiber and unroofed the ureterocele exposing the stone in the ureter then continuing with the holmium laser I looked inside of the ureter and did break the stone into pieces the stone was very big is about 2.1 cm in length but after we broke it into multiple pieces I was able to deliver the fragments into the bladder and continued to break it in the bladder itself and 2 pieces that were flushed out of the bladder. There was no need to put the JJ stent because the ureteral orifice is wide open and we did not go up much into the ureter beyond the ureterocele. The bleeders from the edge of the ureterocele were electrocoagulated using the [employer] electrode. All the stone fragments were evacuated from the bladder the bladder was emptied and the patient was transferred to recovery room in stable and satisfactory condition TAVARES MOTT MD Jul 08, 2017 14:09
[2017-07-08] MEDS: ERTAPENEM SODIUM 1 GM in SOD CHLORIDE 0.9% 100 ML IVPB SCH ×2 (15:35→16:28)
--- NOTE | 2017-07-08 16:55 | RADRPT ---
PROCEDURE: Intraoperative imaging of the abdomen and pelvis with fluoroscopy. CLINICAL INDICATION: Right urinary tract calculus. Intraoperative. TECHNIQUE: Four images of the abdomen and pelvis were obtained in the operating room with an image intensifier. No radiologist was in attendance. 0.1 minutes of fluoroscopy time was used. COMPARISON: Abdomen radiograph feet 07/03/2017. FINDINGS: Images demonstrate a right-sided bladder calculus and possible calculus overlying the right kidney a mamadou IMPRESSION: 1. Satisfactory intraoperative imaging of the abdomen and pelvis. RPTAT: QQ .Kevin Camarena MD, MD Date Time Electronically viewed and signed by .Kevin Camarena MD, MD on 07/08/2017 16:55 .R/
--- NOTE | 2017-07-08 17:29 | PN ---
Date/Time of Note Date/Time of Note DATE: 07/08/17 TIME: 17:28 Assessment/Plan VTE Prophylaxis VTE Prophylaxis Intervention: other Lines/Catheters [facility] C[facility]ter Type (from [facility] Peripheral IV Urinary Cath still in place: No Assessment/Plan Chief Complaint/Hosp Course IMPRESSION: 1. The patient has bacterial urinary tract infection (UTI). 2. Multi drug resistant urinary tract infection (UTI). 3 esbl uti 4 bladder stone/KID STONE 5 s/p cysto and stone removal PLAN ANTIBIOTIC per surgery Problems: Subjective 24 Hr Interval Summary Respiratory: no complaints Cardiovascular: no complaints Gastrointestinal: No nausea Genitourinary: No bleeding, No dysuria Exam/Review of Systems Vital Signs Vitals Vital Signs Date Time Temp Pulse Resp B/P Pulse Ox O2 Delivery O2 Flow Rate FiO2 07/08/17 14:38 66 13 142/75 96 Room Air 07/08/17 14:09 10.0 07/08/17 14:04 98.0 Intake and Output 07/07/17 07/07/17 07/08/17 15:00 23:00 07:00 Intake Total 400 ml 2210 ml 1240 ml Balance 400 ml 2210 ml 1240 ml Exam Neck: supple Respiratory: clear to auscultation Cardiovascular: regular rate and rhythm Gastrointestinal: soft Musculoskeletal: nl extremities to inspection Extremities: normal pulses Results Result Diagram: 07/07/1752007/07/17520 Medications Medications Current Medications Losartan Potassium 25 mg 25 mg DAILY PO Last administered on 07/08/17 15:45; Admin Dose 25 MG; Start 07/02/17 at 09:00 Sodium Chloride (NS) 1,000 ml @ 50 mls/hr Q20H IV Last administered on 08:51; Admin Dose 50 MLS/HR; Start 07/01/17 at 17:01 Ondansetron HCl (Zofran Inj) 4 mg Q6H PRN IV NAUSEA AND/OR VOMITING; Start 07/01 at 17:30 Acetaminophen (Tylenol Tab) 650 mg Q6H PRN PO PAIN LEVEL 1-3 OR FEVER Last administered on 07/05/17 21:23; Admin Dose 650 MG; Start 07/01/17 at 17:30 Acetaminophen (Tylenol Supp) 650 mg Q6H PRN [place] PAIN LEVEL 1-3 OR FEVER; Start 07/01/17 at 17:30 Acetaminophen/ Hydrocodone Bitart ([place] (5/325)) 1 tab Q6H PRN PO MODERATE PAIN LEVEL 4-6; Start 07/01/17 at 17:30 Docusate Sodium (Colace) 100 mg Q12H PRN PO CONSTIPATION; Start 07/01/17 at 17: 30 Magnesium Hydroxide (Milk Of Mag) 30 ml DAILY PRN PO CONSTIPATION Last administered on 07/05/17 10:52; Admin Dose 30 ML; Start 07/01/17 at 17:30 Bisacodyl (Dulcolax) 5 mg DAILY PRN PO CONSTIPATION; Start 07/01/17 at 17:30 Zolpidem Tartrate (Ambien) 5 mg QHS PRN PO SLEEP; Start 07/01/17 at 17:30 Pantoprazole (Protonix Tab) 40 mg DAILY@06 PO Last administered on 07/07/17 06 :19; Admin Dose 40 MG; Start 07/03/17 at 06:00 Ibuprofen 400 mg 400 mg Q6H PRN PO PAIN OR TEMP ABOVE 38C Last administered on 07/05/17 12:21; Admin Dose 400 MG; Start 07/04/17 at 12:00 Ertapenem/Sodium Chloride (Invanz/NS) 100 ml @ 200 mls/hr Q24H IVPB Last administered on 07/08/17 16:28; Admin Dose 200 MLS/HR; Start 07/05/17 at 15:00 NICOLAS BARILLAS MD Jul 08, 2017 17:29
--- NOTE | 2017-07-08 18:50 | CONS ---
Date/Time of Note Date/Time of Note DATE: 07/08/17 TIME: 18:49 Assessment/Plan Assessment/Plan Chief Complaint/Hosp Course SUBJECTIVE DATA: No events overnight. Alert, feels better, no fevers, nad MICROBIOLOGY: Urine culture grew E coli, ESBL. ANTIMICROBIAL: Invanz. PHYSICAL EXAMINATION: GENERAL: Well developed, middle-aged, [place] woman who is alert, in no distress. HEENT: Head atraumatic, normocephalic. Sclerae anicteric. Buccal mucosa pink. NECK: Supple. CHEST: Chest rise symmetrical. Breath sounds clear. HEART: S1, S2. ABDOMEN: Soft, bowel sounds present. EXTREMITIES: Without cyanosis. ASSESSMENT: 1. Escherichia coli, extended beta spectrum lactamase (ESBL) urinary tract infection (UTI). 2. Obstructive uropathy. 3. Hypertension. PLAN: The patient remains stable, pending cystoscopy. DW pt/staff Problems: Consultation Date/Type/Reason Admit Date/Time Jul 01, 2017 at 13:56 Initial Consult Date 07/03/17 Type of Consultation: ID Referring Provider: NICOLAS BARILLAS MD Exam/Review of Systems Vital Signs Vitals Vital Signs Date Time Temp Pulse Resp B/P Pulse Ox O2 Delivery O2 Flow Rate FiO2 07/08/17 14:38 66 13 142/75 96 Room Air 07/08/17 14:09 10.0 07/08/17 14:04 98.0 Intake and Output 07/07/17 07/07/17 07/08/17 15:00 23:00 07:00 Intake Total 400 ml 2210 ml 1240 ml Balance 400 ml 2210 ml 1240 ml Results Result Diagram: 07/07/17 0521 07/07/17 05 Medications Medications Current Medications Losartan Potassium 25 mg 25 mg DAILY PO Last administered on 07/08/17 15:45; Admin Dose 25 MG; Start 07/02/17 at 09:00 Sodium Chloride (NS) 1,000 ml @ 50 mls/hr Q20H IV Last administered on 08:51; Admin Dose 50 MLS/HR; Start 07/01/17 at 17:01 Ondansetron HCl (Zofran Inj) 4 mg Q6H PRN IV NAUSEA AND/OR VOMITING; Start 07/01 at 17:30 Acetaminophen (Tylenol Tab) 650 mg Q6H PRN PO PAIN LEVEL 1-3 OR FEVER Last administered on 07/05/17 21:23; Admin Dose 650 MG; Start 07/01/17 at 17:30 Acetaminophen (Tylenol Supp) 650 mg Q6H PRN [place] PAIN LEVEL 1-3 OR FEVER; Start 07/01/17 at 17:30 Acetaminophen/ Hydrocodone Bitart ([place] (5/325)) 1 tab Q6H PRN PO MODERATE PAIN LEVEL 4-6; Start 07/01/17 at 17:30 Docusate Sodium (Colace) 100 mg Q12H PRN PO CONSTIPATION; Start 07/01/17 at 17: 30 Magnesium Hydroxide (Milk Of Mag) 30 ml DAILY PRN PO CONSTIPATION Last administered on 07/05/17 10:52; Admin Dose 30 ML; Start 07/01/17 at 17:30 Bisacodyl (Dulcolax) 5 mg DAILY PRN PO CONSTIPATION; Start 07/01/17 at 17:30 Zolpidem Tartrate (Ambien) 5 mg QHS PRN PO SLEEP; Start 07/01/17 at 17:30 Pantoprazole (Protonix Tab) 40 mg DAILY@06 PO Last administered on 07/07/17 06 :19; Admin Dose 40 MG; Start 07/03/17 at 06:00 Ibuprofen 400 mg 400 mg Q6H PRN PO PAIN OR TEMP ABOVE 38C Last administered on 07/05/17 12:21; Admin Dose 400 MG; Start 07/04/17 at 12:00 Ertapenem/Sodium Chloride (Invanz/NS) 100 ml @ 200 mls/hr Q24H IVPB Last administered on 07/08/17 16:28; Admin Dose 200 MLS/HR; Start 07/05/17 at 15:00 REANNA DELGADO NP Jul 08, 2017 18:50
[2017-07-09 02:28] VITALS: BP 101/51; RESP 18
[2017-07-09] MEDS: SOD CHLORIDE 0.9% 1,000 ML IV SCH ×2 (05:14→22:29)
[2017-07-09] MEDS: PANTOPRAZOLE (EC) 40 MG TAB PO SCH (05:14)
[2017-07-09 06:29] LABS: BASOPHILS % 0.3 % (0.0-2.0); EOSINOPHILS % 0.2 % (0.0-7.0); HEMATOCRIT 34.1 % (37.0-47.0); HEMOGLOBIN 11.7 g/dl (12.0-16.0); LYMPHOCYTES # 1.7 10^3/ul (0.8-2.9); LYMPHOCYTES % 14.4 % (15.0-51.0); MEAN CORPUSCULAR HEMOGLOBIN 29.6 pg (29.0-33.0); MEAN CORPUSCULAR HGB CONC 34.3 g/dl (32.0-37.0); MEAN CORPUSCULAR VOLUME 86.3 fl (82.0-101.0); MEAN PLATELET VOLUME 9.5 fl (7.4-10.4); MONOCYTES % 8.2 % (0.0-11.0); NEUTROPHILS % 76.4 % (39.0-77.0); PLATELET COUNT 375 10^3/UL (140-415); RED BLOOD COUNT 3.95 10^6/ul (4.20-5.40); RED CELL DISTRIBUTION WIDTH 12.4 % (11.5-14.5); WHITE BLOOD COUNT 11.7 10^3/ul (4.8-10.8)
[2017-07-09 06:50] LABS: ALBUMIN 3.5 g/dl (3.3-4.9); ALBUMIN/GLOBULIN RATIO 1.2; BILIRUBIN,INDIRECT 0.2 mg/dl (0-1.1); BILIRUBIN,TOTAL 0.2 mg/dl (0.2-1.3); CALCIUM 9.1 mg/dl (8.4-10.2); CREATININE 0.44 mg/dl (0.44-1.00); TOTAL PROTEIN 6.4 g/dl (6.1-8.1)
[2017-07-09 07:55] VITALS: BP 126/60; RESP 16
[2017-07-09] MEDS: LOSARTAN 25 MG TAB PO SCH (08:01)
[2017-07-09] MEDS: IBUPROFEN 400 MG TAB PO PRN (09:44)
[2017-07-09] MEDS ORDERED: LIDOCAINE 1% (MPF) 5 ML VIAL SC ONE (12:30)
--- NOTE | 2017-07-09 14:12 | RADRPT ---
PROCEDURE: XR Chest. CLINICAL INDICATION: Check PICC line position. TECHNIQUE: Single frontal view. COMPARISON: 07/03/2017. FINDINGS: There is a left arm PICC line with the tip in the cavoatrial junction region. The lungs are clear. The heart size is normal. There is no pleural effusion. There is no pneumothorax. IMPRESSION: 1. Left arm PICC line tip in satisfactory position. 2. Otherwise normal chest radiograph. RPTAT: QQ .Kevin Camarena MD, MD Date Time Electronically viewed and signed by .Kevin Camarena MD, MD on 07/09/2017 14:12 .R/
[2017-07-09] MEDS: ERTAPENEM SODIUM 1 GM in SOD CHLORIDE 0.9% 100 ML IVPB SCH (14:49)
--- NOTE | 2017-07-09 15:10 | RADRPT ---
PROCEDURE: US guidance for PICC line CLINICAL INDICATION: PICC line placement TECHNIQUE: Multiple real-time images were acquired of the patient's arm utilizing a high resolutio n transducer. This was performed by the PICC line nurse for venous access. COMPARISON: None FINDINGS: Ultrasound guidance for PICC line placement. IMPRESSION: Ultrasound guidance for PICC line placement. RPTAT: AA .Chris Peterson MD, MD Date Time Electronically viewed and signed by .Chris Peterson MD, on 07/09/2017 15:10 .S/
--- NOTE | 2017-07-09 18:07 | PN ---
Date/Time of Note Date/Time of Note DATE: 07/09/17 TIME: 17:58 Assessment/Plan VTE Prophylaxis VTE Prophylaxis Intervention: ambulation Lines/Catheters IV [facility]ter Type (from [facility] PICC Line Central line still needed: Yes Urinary Cath still in place: No Assessment/Plan Chief Complaint/Hosp Course 52-year-old female with recurrent urinary tract infection and infections that are resistant to oral antibiotic. patient had ESBL in the urine on admission and now the urine culture showed no growth in 24 hour .The renal ultrasound did show 2 cm stone however the stone was in the distal ureter in a ureterocele. She underwent cystoscopy, ureteroscopy laser lithotripsy and I removed the stones from the ureter and from the bladder. Postop the patient is doing well .she still have a stone in the right kidney that would later on be treated with extracorporeal shockwave lithotripsy Problems: Subjective 24 Hr Interval Summary Constitutional: no complaints Eyes: no complaints ENT: no complaints Respiratory: no complaints Cardiovascular: No chest pain Gastrointestinal: no complaints, No nausea, No vomiting Genitourinary: no complaints, other (Feels better and has no dysuria) Musculoskeletal: no complaints Skin: no complaints Neurologic: no complaints Endocrine: no complaints Psychological: no complaints Exam/Review of Systems Vital Signs Vitals Vital Signs Date Time Temp Pulse Resp B/P Pulse Ox O2 Delivery O2 Flow Rate FiO2 07/09/17 07:55 97.9 85 16 126/60 99 07/08/17 14:38 Room Air 07/08/17 14:09 10.0 Intake and Output 07/08/17 07/08/17 07/09/17 15:00 23:00 07:00 Intake Total 1050 ml 550 ml 1000 ml Output Total 0 ml Balance 1050 ml 550 ml 1000 ml Exam Constitutional: alert, oriented Psych: anxiety Head: normocephalic Eyes: nl conjunctiva ENMT: nl external ears & nose Respiratory: normal air movement Cardiovascular: No edema Gastrointestinal: soft Genitourinary - Female: No CVA tenderness Skin: nl turgor Lymph: nl lymph nodes Results Result Diagram: 07/09/17 0521 07/09/17 0521 Results 24 hrs Laboratory Tests Test 07/09/17 05:21 White Blood Count 11.7 #H Red Blood Count 3.95 L Hemoglobin 11.7 L Hematocrit 34.1 L Mean Corpuscular Volume 86.3 Mean Corpuscular Hemoglobin 29.6 Mean Corpuscular Hemoglobin Concent 34.3 Red Cell Distribution Width 12.4 Platelet Count 375 Mean Platelet Volume 9.5 Neutrophils % 76.4 Lymphocytes % 14.4 L Monocytes % 8.2 Eosinophils % 0.2 Basophils % 0.3 Nucleated Red Blood Cells % 0.0 Neutrophils # (Manual) 9.0 H Lymphocytes # 1.7 Monocytes # 1.0 H Eosinophils # 0.0 Basophils # 0.0 Nucleated Red Blood Cells # 0.0 Sodium Level 137 Potassium Level 4.0 Chloride Level 105 Carbon Dioxide Level 23 Anion Gap 13 Blood Urea Nitrogen 11 Creatinine 0.44 Glucose Level 113 Calcium Level 9.1 Total Bilirubin 0.2 Direct Bilirubin 0.00 Indirect Bilirubin 0.2 Aspartate Amino Transf (AST/SGOT) 23 Alanine Aminotransferase (ALT/SGPT) 43 Alkaline Phosphatase 74 Total Protein 6.4 Albumin 3.5 Globulin 2.90 Albumin/Globulin Ratio 1.20 Medications Medications Current Medications Losartan Potassium 25 mg 25 mg DAILY PO Last administered on 07/09/17 08:01; Admin Dose 25 MG; Start 07/02/17 at 09:00 Sodium Chloride (NS) 1,000 ml @ 50 mls/hr Q20H IV Last administered on 05:14; Admin Dose 50 MLS/HR; Start 07/01/17 at 17:01 Ondansetron HCl (Zofran Inj) 4 mg Q6H PRN IV NAUSEA AND/OR VOMITING; Start 07/01 at 17:30 Acetaminophen (Tylenol Tab) 650 mg Q6H PRN PO PAIN LEVEL 1-3 OR FEVER Last administered on 07/05/17 21:23; Admin Dose 650 MG; Start 07/01/17 at 17:30 Acetaminophen (Tylenol Supp) 650 mg Q6H PRN [place] PAIN LEVEL 1-3 OR FEVER; Start 07/01/17 at 17:30 Acetaminophen/ Hydrocodone Bitart ([place] (5/325)) 1 tab Q6H PRN PO MODERATE PAIN LEVEL 4-6; Start 07/01/17 at 17:30 Docusate Sodium (Colace) 100 mg Q12H PRN PO CONSTIPATION; Start 07/01/17 at 17: 30 Magnesium Hydroxide (Milk Of Mag) 30 ml DAILY PRN PO CONSTIPATION Last administered on 07/05/17 10:52; Admin Dose 30 ML; Start 07/01/17 at 17:30 Bisacodyl (Dulcolax) 5 mg DAILY PRN PO CONSTIPATION; Start 07/01/17 at 17:30 Zolpidem Tartrate (Ambien) 5 mg QHS PRN PO SLEEP; Start 07/01/17 at 17:30 Pantoprazole (Protonix Tab) 40 mg DAILY@06 PO Last administered on 07/09/17 05 :14; Admin Dose 40 MG; Start 07/03/17 at 06:00 Ibuprofen 400 mg 400 mg Q6H PRN PO PAIN OR TEMP ABOVE 38C Last administered on 07/09/17 09:44; Admin Dose 400 MG; Start 07/04/17 at 12:00 Ertapenem/Sodium Chloride (Invanz/NS) 100 ml @ 200 mls/hr Q24H IVPB Last administered on 07/09/17 14:49; Admin Dose 200 MLS/HR; Start 07/05/17 at 15:00 IV Flush (NS 10 ml) 10 ml PRN PRN IV IV PROTOCOL; Start 07/09/17 at 15:00 TAVARES MOTT MD Jul 09, 2017 18:07
[2017-07-09] MEDS ORDERED: SOD CHLORIDE 0.9% 100 ML ONE (18:50)
[2017-07-09 20:34] VITALS: BP 127/70; RESP 16
--- NOTE | 2017-07-09 20:43 | PN ---
DATE: 07/09/2017 SUBJECTIVE DATA: No acute changes. The patient is alert, feels good, looks comfortable. No fevers. No dysuria. LABORATORY AND DIAGNOSTIC DATA: WBC today 11.7, no shift, no bands. BUN 11 and creatinine 0.44. MICROBIOLOGY: Urine culture repeated yesterday negative. ANTIMICROBIALS: Invanz. PHYSICAL EXAMINATION: GENERAL: Well-developed, middle-aged [place] woman who is alert, in no distress. HEENT: Head atraumatic, normocephalic. Sclerae anicteric. Buccal mucosa pink. NECK: Supple. CHEST: Chest rise symmetrical. Breath sounds clear. HEART: S1, S2. ABDOMEN: Soft, bowel sounds present. EXTREMITIES: Without cyanosis. ASSESSMENT: 1. Tract infection. 2. Obstructive uropathy, status post cystoscopy, right ureteral ureteroscopy, laser lithotripsy, removal of the stone from the distal ureter, done by Dr. Judd. 3. Hypertension. PLAN: 1. The patient remains stable. 2. Repeat urine culture negative. 3. As per discussion with Dr. Judd the patient is okay to be discharged home to complete treatment with antibiotics. 4. We are going to order PICC line. 5. Discussed with [facility] arrangement for 7 more days. 6. Above was discussed with patient at length. Dictated By: Jose Miguel Grier NP /curt/yeni /Document#: [id number] [email or web address]
--- NOTE | 2017-07-09 23:28 | PN ---
Date/Time of Note Date/Time of Note DATE: 07/09/17 TIME: 23:27 Assessment/Plan VTE Prophylaxis VTE Prophylaxis Intervention: other Lines/Catheters IV Catheter Type (from Nrs): PICC Line Central line still needed: Yes Urinary Cath still in place: No Reason Cath still needed: other (indicate) Assessment/Plan Chief Complaint/Hosp Course IMPRESSION: 1. The patient has bacterial urinary tract infection (UTI). 2. Multi drug resistant urinary tract infection (UTI). 3 esbl uti 4 bladder stone/KID STONE 5 s/p cysto and stone removal PLAN ANTIBIOTIC per surgery per id Problems: Subjective 24 Hr Interval Summary Respiratory: no complaints Gastrointestinal: pain (+) Exam/Review of Systems Vital Signs Vitals Vital Signs Date Time Temp Pulse Resp B/P Pulse Ox O2 Delivery O2 Flow Rate FiO2 07/09/17 20:34 97.3 73 16 127/70 96 07/08/17 14:38 Room Air 07/08/17 14:09 10.0 Intake and Output 07/08/17 07/08/17 07/09/17 15:00 23:00 07:00 Intake Total 1050 ml 550 ml 1000 ml Output Total 0 ml Balance 1050 ml 550 ml 1000 ml Exam Respiratory: clear to auscultation Cardiovascular: regular rate and rhythm Gastrointestinal: bowel sounds (+), soft Extremities: No edema Results Result Diagram: 07/09/1752007/09/17 0521 Results 24 hrs Laboratory Tests Test 07/09/17 05:21 White Blood Count 11.7 #H Red Blood Count 3.95 L Hemoglobin 11.7 L Hematocrit 34.1 L Mean Corpuscular Volume 86.3 Mean Corpuscular Hemoglobin 29.6 Mean Corpuscular Hemoglobin Concent 34.3 Red Cell Distribution Width 12.4 Platelet Count 375 Mean Platelet Volume 9.5 Neutrophils % 76.4 Lymphocytes % 14.4 L Monocytes % 8.2 Eosinophils % 0.2 Basophils % 0.3 Nucleated Red Blood Cells % 0.0 Neutrophils # (Manual) 9.0 H Lymphocytes # 1.7 Monocytes # 1.0 H Eosinophils # 0.0 Basophils # 0.0 Nucleated Red Blood Cells # 0.0 Sodium Level 137 Potassium Level 4.0 Chloride Level 105 Carbon Dioxide Level 23 Anion Gap 13 Blood Urea Nitrogen 11 Creatinine 0.44 Glucose Level 113 Calcium Level 9.1 Total Bilirubin 0.2 Direct Bilirubin 0.00 Indirect Bilirubin 0.2 Aspartate Amino Transf (AST/SGOT) 23 Alanine Aminotransferase (ALT/SGPT) 43 Alkaline Phosphatase 74 Total Protein 6.4 Albumin 3.5 Globulin 2.90 Albumin/Globulin Ratio 1.20 Medications Medications Current Medications Losartan Potassium 25 mg 25 mg DAILY PO Last administered on 07/09/17 08:01; Admin Dose 25 MG; Start 07/02/17 at 09:00 Sodium Chloride (NS) 1,000 ml @ 50 mls/hr Q20H IV Last administered on 22:29; Admin Dose 50 MLS/HR; Start 07/01/17 at 17:01 Ondansetron HCl (Zofran Inj) 4 mg Q6H PRN IV NAUSEA AND/OR VOMITING; Start 07/01 at 17:30 Acetaminophen (Tylenol Tab) 650 mg Q6H PRN PO PAIN LEVEL 1-3 OR FEVER Last administered on 07/05/17 21:23; Admin Dose 650 MG; Start 07/01/17 at 17:30 Acetaminophen (Tylenol Supp) 650 mg Q6H PRN [place] PAIN LEVEL 1-3 OR FEVER; Start 07/01/17 at 17:30 Acetaminophen/ Hydrocodone Bitart ([place] (5/325)) 1 tab Q6H PRN PO MODERATE PAIN LEVEL 4-6; Start 07/01/17 at 17:30 Docusate Sodium (Colace) 100 mg Q12H PRN PO CONSTIPATION; Start 07/01/17 at 17: 30 Magnesium Hydroxide (Milk Of Mag) 30 ml DAILY PRN PO CONSTIPATION Last administered on 07/05/17 10:52; Admin Dose 30 ML; Start 07/01/17 at 17:30 Bisacodyl (Dulcolax) 5 mg DAILY PRN PO CONSTIPATION; Start 07/01/17 at 17:30 Zolpidem Tartrate (Ambien) 5 mg QHS PRN PO SLEEP; Start 07/01/17 at 17:30 Pantoprazole (Protonix Tab) 40 mg DAILY@06 PO Last administered on 07/09/17 05 :14; Admin Dose 40 MG; Start 07/03/17 at 06:00 Ibuprofen 400 mg 400 mg Q6H PRN PO PAIN OR TEMP ABOVE 38C Last administered on 07/09/17 09:44; Admin Dose 400 MG; Start 07/04/17 at 12:00 Ertapenem/Sodium Chloride (Invanz/NS) 100 ml @ 200 mls/hr Q24H IVPB Last administered on 07/09/17t 14:49; Admin Dose 200 MLS/HR; Start 07/05/17 at 15:00 IV Flush (NS 10 ml) 10 ml PRN PRN IV IV PROTOCOL; Start 07/09/17 at 15:00 NICOLAS BARILLAS MD Jul 09, 2017 23:28
[2017-07-10 02:57] VITALS: BP 116/72; RESP 18
[2017-07-10] MEDS: PANTOPRAZOLE (EC) 40 MG TAB PO SCH (05:13)
[2017-07-10 08:01] VITALS: BP 154/88; RESP 20
[2017-07-10] MEDS: LOSARTAN 25 MG TAB PO SCH (09:17)
[2017-07-10 14:33] VITALS: BP 141/90; RESP 20
--- NOTE | 2017-07-10 15:03 | CONS ---
Date/Time of Note Date/Time of Note DATE: 07/10/17 TIME: 15:02 Assessment/Plan Assessment/Plan Chief Complaint/Hosp Course SUBJECTIVE DATA: No events overnight. Alert, feels better, no fevers, nad MICROBIOLOGY: Repeat urine culture negative ANTIMICROBIAL: Invanz. PHYSICAL EXAMINATION: GENERAL: Well developed, middle-aged, [place] woman who is alert, in no distress. HEENT: Head atraumatic, normocephalic. Sclerae anicteric. Buccal mucosa pink. NECK: Supple. CHEST: Chest rise symmetrical. Breath sounds clear. HEART: S1, S2. ABDOMEN: Soft, bowel sounds present. EXTREMITIES: Without cyanosis. ASSESSMENT: 1. Escherichia coli, extended beta spectrum lactamase (ESBL) urinary tract infection (UTI). 2. Obstructive uropathy, cystoscopy. 3. Hypertension. PLAN: The patient remains stable, cleared by urology, pending dc on 6 more days of Invanz. ANA pt/staff Problems: Consultation Date/Type/Reason Admit Date/Time Jul 01, 2017 at 13:56 Initial Consult Date 07/03/17 Type of Consultation: ID Referring Provider: NICOLAS BARILLAS MD Exam/Review of Systems Vital Signs Vitals Vital Signs Date Time Temp Pulse Resp B/P Pulse Ox O2 Delivery O2 Flow Rate FiO2 07/10/17 14:33 98.8 86 20 141/90 100 07/08/17 14:38 Room Air 07/08/17 14:09 10.0 Intake and Output 07/09/17 07/09/17 07/10/17 15:00 23:00 07:00 Intake Total 2780 ml 700 ml Balance 2780 ml 700 ml Results Result Diagram: 07/09/17 0521 07/09/17 0521 Medications Medications Current Medications Losartan Potassium 25 mg 25 mg DAILY PO Last administered on 07/10/17 09:17; Admin Dose 25 MG; Start 07/02/17 at 09:00 Sodium Chloride (NS) 1,000 ml @ 50 mls/hr Q20H IV Last administered on 22:29; Admin Dose 50 MLS/HR; Start 07/01/17 at 17:01 Ondansetron HCl (Zofran Inj) 4 mg Q6H PRN IV NAUSEA AND/OR VOMITING; Start 07/01 at 17:30 Acetaminophen (Tylenol Tab) 650 mg Q6H PRN PO PAIN LEVEL 1-3 OR FEVER Last administered on 07/05/17 21:23; Admin Dose 650 MG; Start 07/01/17 at 17:30 Acetaminophen (Tylenol Supp) 650 mg Q6H PRN [place] PAIN LEVEL 1-3 OR FEVER; Start 07/01/17 at 17:30 Acetaminophen/ Hydrocodone Bitart ([place] (5/325)) 1 tab Q6H PRN PO MODERATE PAIN LEVEL 4-6; Start 07/01/17 at 17:30 Docusate Sodium (Colace) 100 mg Q12H PRN PO CONSTIPATION; Start 07/01/17 at 17: 30 Magnesium Hydroxide (Milk Of Mag) 30 ml DAILY PRN PO CONSTIPATION Last administered on 07/05/17 10:52; Admin Dose 30 ML; Start 07/01/17 at 17:30 Bisacodyl (Dulcolax) 5 mg DAILY PRN PO CONSTIPATION; Start 07/01/17 at 17:30 Zolpidem Tartrate (Ambien) 5 mg QHS PRN PO SLEEP; Start 07/01/17 at 17:30 Pantoprazole (Protonix Tab) 40 mg DAILY@06 PO Last administered on 07/10/17 05 :13; Admin Dose 40 MG; Start 07/03/17 at 06:00 Ibuprofen 400 mg 400 mg Q6H PRN PO PAIN OR TEMP ABOVE 38C Last administered on 07/09/17 09:44; Admin Dose 400 MG; Start 07/04/17 at 12:00 Ertapenem/Sodium Chloride (Invanz/NS) 100 ml @ 200 mls/hr Q24H IVPB Last administered on 07/09/17 14:49; Admin Dose 200 MLS/HR; Start 07/05/17 at 15:00 IV Flush (NS 10 ml) 10 ml PRN PRN IV IV PROTOCOL; Start 07/09/17 at 15:00 REANNA DELGADO NP Jul 10, 2017 15:03
[2017-07-10] MEDS: ERTAPENEM SODIUM 1 GM in SOD CHLORIDE 0.9% 100 ML IVPB SCH (15:30)
[2017-07-10] MEDS: MAGNESIUM HYDROXIDE 30ML CUP PO PRN (16:35)
--- NOTE | 2017-07-10 16:48 | PDOCDIS ---
Discharge Instructions CONDITION Patient Condition: Stable HOME CARE INSTRUCTIONS: Special Diet: regular, no red meat, chicken and fish only ACTIVITY: Activity Restrictions: Slowly Increase Activity FOLLOW UP/APPOINTMENTS Follow-up Plan f/u own pcp [address] read [address] leyva 1 wks NICOLAS BARILLAS MD Jul 10, 2017 16:48
[2017-07-10] MEDS ORDERED: IBUP400T22 PO (16:53)
[2017-07-10] MEDS ORDERED: DOCU-216 PO (16:53)
[2017-07-10] MEDS ORDERED: UDMOM PO (16:53)
[2017-07-10] MEDS ORDERED: LACTINEX PO (16:53)
[2017-07-10] MEDS ORDERED: BISA5TAB6 PO (16:53)
--- NOTE | 2017-07-10 17:32 | PN ---
Date/Time of Note Date/Time of Note DATE: 07/10/17 TIME: 17:30 Assessment/Plan VTE Prophylaxis VTE Prophylaxis Intervention: other Lines/Catheters IV Catheter Type (from Nrsg): PICC Line Central line still needed: Yes Urinary Cath still in place: No Reason Cath still needed: other (indicate) Assessment/Plan Chief Complaint/Hosp Course IMPRESSION: 1. The patient has bacterial urinary tract infection (UTI). 2. Multi drug resistant urinary tract infection (UTI). 3 esbl uti 4 bladder stone/KID STONE 5 s/p cysto and stone removal PLAN ANTIBIOTIC per surgery per id CK CBC IF OK HOME Problems: Subjective 24 Hr Interval Summary Gastrointestinal: no complaints Genitourinary: no complaints Exam/Review of Systems Vital Signs Vitals Vital Signs Date Time Temp Pulse Resp B/P Pulse Ox O2 Delivery O2 Flow Rate FiO2 07/10/17 14:33 98.8 86 20 141/90 100 07/08/17 14:38 Room Air 07/08/17 14:09 10.0 Intake and Output 07/09/17 07/09/17 07/10/17 15:00 23:00 07:00 Intake Total 2780 ml 700 ml Balance 2780 ml 700 ml Exam Respiratory: clear to auscultation Cardiovascular: regular rate and rhythm Gastrointestinal: soft Musculoskeletal: nl extremities to inspection Results Result Diagram: 07/09/1752007/09/17520 Medications Medications Current Medications Losartan Potassium 25 mg 25 mg DAILY PO Last administered on 07/10/17 09:17; Admin Dose 25 MG; Start 07/02/17 at 09:00 Sodium Chloride (NS) 1,000 ml @ 50 mls/hr Q20H IV Last administered on 22:29; Admin Dose 50 MLS/HR; Start 07/01/17 at 17:01 Ondansetron HCl (Zofran Inj) 4 mg Q6H PRN IV NAUSEA AND/OR VOMITING; Start 07/01 at 17:30 Acetaminophen (Tylenol Tab) 650 mg Q6H PRN PO PAIN LEVEL 1-3 OR FEVER Last administered on 07/05/17 21:23; Admin Dose 650 MG; Start 07/01/17 at 17:30 Acetaminophen (Tylenol Supp) 650 mg Q6H PRN [place] PAIN LEVEL 1-3 OR FEVER; Start 9/5/17 at 17:30 Acetaminophen/ Hydrocodone Bitart ([place] (5/325)) 1 tab Q6H PRN PO MODERATE PAIN LEVEL 4-6; Start 07/01/17 at 17:30 Docusate Sodium (Colace) 100 mg Q12H PRN PO CONSTIPATION; Start 07/01/17 at 17: 30 Magnesium Hydroxide (Milk Of Mag) 30 ml DAILY PRN PO CONSTIPATION Last administered on 07/10/17 16:35; Admin Dose 30 ML; Start 07/01/17 at 17:30 Bisacodyl (Dulcolax) 5 mg DAILY PRN PO CONSTIPATION; Start 07/01/17 at 17:30 Zolpidem Tartrate (Ambien) 5 mg QHS PRN PO SLEEP; Start 07/01/17 at 17:30 Pantoprazole (Protonix Tab) 40 mg DAILY@06 PO Last administered on 07/10/17 05 :13; Admin Dose 40 MG; Start 07/03/17 at 06:00 Ibuprofen 400 mg 400 mg Q6H PRN PO PAIN OR TEMP ABOVE 38C Last administered on 07/09/17 09:44; Admin Dose 400 MG; Start 07/04/17 at 12:00 Ertapenem/Sodium Chloride (Invanz/NS) 100 ml @ 200 mls/hr Q24H IVPB Last administered on 07/10/17 15:30; Admin Dose 200 MLS/HR; Start 07/05/17 at 15:00 IV Flush (NS 10 ml) 10 ml PRN PRN IV IV PROTOCOL; Start 07/09/17 at 15:00 Lactobacillus Acidophilus (Florajen3 Capsule) 1 each BID PO ; Start 07/10/17 at 21:00 NICOLAS BARILLAS MD Jul 10, 2017 17:32
--- NOTE | 2017-07-10 19:28 | PN ---
Date/Time of Note Date/Time of Note DATE: 07/10/17 TIME: 19:23 Assessment/Plan VTE Prophylaxis VTE Prophylaxis Intervention: ambulation Lines/Catheters IV [facility] Type (from [facility]): PICC Line Central line still needed: Yes Urinary Cath still in place: No Assessment/Plan Chief Complaint/Hosp Course 52-year-old female with recurrent urinary tract infection , ESBL in the urine on admission and now the urine culture showed no growth in 48 hours .The renal ultrasound did show 2 cm stone in the distal ureter in a ureterocele. She underwent cystoscopy, ureteroscopy laser lithotripsy and I removed the stones from the ureter and from the bladder. Postop the patient is doing well .she still have a stone in the right kidney that would later on be treated with extracorporeal shockwave lithotripsy Patient did have a PICC line inserted yesterday in preparation to send her home on intravenous antibiotic. She will be on the antibiotic IV for another week. I have requested insurance case manager to obtain a new authorization for her to follow- up in my office in about 2 weeks. Problems: Subjective 24 Hr Interval Summary Constitutional: improved Eyes: no complaints ENT: no complaints Respiratory: no complaints Cardiovascular: no complaints Gastrointestinal: no complaints Genitourinary: No dysuria Musculoskeletal: no complaints, other (States that she feels like pinching in her extremities in different places.) Skin: no complaints Endocrine: no complaints Lymphatic: no complaints Exam/Review of Systems Vital Signs Vitals Vital Signs Date Time Temp Pulse Resp B/P Pulse Ox O2 Delivery O2 Flow Rate FiO2 07/10/17 14:33 98.8 86 20 141/90 100 07/08/17 14:38 Room Air 07/08/17 14:09 10.0 Intake and Output 07/09/17 07/09/17 07/10/17 15:00 23:00 07:00 Intake Total 2780 ml 700 ml Balance 2780 ml 700 ml Exam Constitutional: alert, oriented Psych: no complaints Head: normocephalic Eyes: nl conjunctiva ENMT: nl external ears & nose Neck: supple Respiratory: normal air movement Cardiovascular: regular rate and rhythm Gastrointestinal: soft Genitourinary - Female: other (Urine culture: no growth after 48 hours), No CVA tenderness Extremities: No calf tenderness, No edema Results Result Diagram: 07/09/1752007/09/17520 Medications Medications Current Medications Losartan Potassium 25 mg 25 mg DAILY PO Last administered on 07/10/17 09:17; Admin Dose 25 MG; Start 07/02/17 at 09:00 Sodium Chloride (NS) 1,000 ml @ 50 mls/hr Q20H IV Last administered on 22:29; Admin Dose 50 MLS/HR; Start 07/01/17 at 17:01 Ondansetron HCl (Zofran Inj) 4 mg Q6H PRN IV NAUSEA AND/OR VOMITING; Start 07/01 at 17:30 Acetaminophen (Tylenol Tab) 650 mg Q6H PRN PO PAIN LEVEL 1-3 OR FEVER Last administered on 07/05/17 21:23; Admin Dose 650 MG; Start 07/01/17 at 17:30 Acetaminophen (Tylenol Supp) 650 mg Q6H PRN [place] PAIN LEVEL 1-3 OR FEVER; Start 07/01/17 at 17:30 Acetaminophen/ Hydrocodone Bitart ([place] (5/325)) 1 tab Q6H PRN PO MODERATE PAIN LEVEL 4-6; Start 07/01/17 at 17:30 Docusate Sodium (Colace) 100 mg Q12H PRN PO CONSTIPATION; Start 07/01/17 at 17: 30 Magnesium Hydroxide (Milk Of Mag) 30 ml DAILY PRN PO CONSTIPATION Last administered on 07/10/17 16:35; Admin Dose 30 ML; Start 07/01/17 at 17:30 Bisacodyl (Dulcolax) 5 mg DAILY PRN PO CONSTIPATION; Start 07/01/17 at 17:30 Zolpidem Tartrate (Ambien) 5 mg QHS PRN PO SLEEP; Start 07/01/17 at 17:30 Pantoprazole (Protonix Tab) 40 mg DAILY@06 PO Last administered on 07/10/17 05 :13; Admin Dose 40 MG; Start 07/03/17 at 06:00 Ibuprofen 400 mg 400 mg Q6H PRN PO PAIN OR TEMP ABOVE 38C Last administered on 07/09/17 09:44; Admin Dose 400 MG; Start 07/04/17 at 12:00 Ertapenem/Sodium Chloride (Invanz/NS) 100 ml @ 200 mls/hr Q24H IVPB Last administered on 07/10/17 15:30; Admin Dose 200 MLS/HR; Start 07/05/17 at 15:00 IV Flush (NS 10 ml) 10 ml PRN PRN IV IV PROTOCOL; Start 07/09/17 at 15:00 Lactobacillus Acidophilus (Florajen3 Capsule) 1 each BID PO ; Start 07/10/17 at 21:00 TAVARES MOTT MD Jul 10, 2017 19:28
[2017-07-10] MEDS: L ACIDOPHIL/B LACTIS/B LONGUM CAPSULE PO SCH (20:27)
[2017-07-10] MEDS: SOD CHLORIDE 0.9% 1,000 ML IV SCH (20:28)
[2017-07-10 20:56] VITALS: BP 146/94; RESP 18
[2017-07-11 02:40] VITALS: BP 93/57; RESP 18
[2017-07-11] MEDS: PANTOPRAZOLE (EC) 40 MG TAB PO SCH (05:08)
[2017-07-11 05:58] LABS: BASOPHIL # 0.1 10^3/ul (0.0-0.1); BASOPHILS % 0.8 % (0.0-2.0); EOSINOPHILS # 0.2 10^3/ul (0.0-0.5); EOSINOPHILS % 2.1 % (0.0-7.0); HEMATOCRIT 36.4 % (37.0-47.0); HEMOGLOBIN 12.2 g/dl (12.0-16.0); LYMPHOCYTES # 2.3 10^3/ul (0.8-2.9); LYMPHOCYTES % 23.1 % (15.0-51.0); MEAN CORPUSCULAR HEMOGLOBIN 29.2 pg (29.0-33.0); MEAN CORPUSCULAR HGB CONC 33.5 g/dl (32.0-37.0); MEAN CORPUSCULAR VOLUME 87.1 fl (82.0-101.0); MEAN PLATELET VOLUME 9.6 fl (7.4-10.4); MONOCYTE # 0.7 10^3/ul (0.3-0.9); MONOCYTES % 6.9 % (0.0-11.0); NEUTROPHIL # 6.6 10^3/ul (1.6-7.5); NEUTROPHILS % 66.8 % (39.0-77.0); PLATELET COUNT 337 10^3/UL (140-415); RED BLOOD COUNT 4.18 10^6/ul (4.20-5.40); RED CELL DISTRIBUTION WIDTH 12.9 % (11.5-14.5); WHITE BLOOD COUNT 9.8 10^3/ul (4.8-10.8)
[2017-07-11 08:00] VITALS: BP 148/76; RESP 20
[2017-07-11] MEDS: L ACIDOPHIL/B LACTIS/B LONGUM CAPSULE PO SCH (08:29)
[2017-07-11] MEDS: LOSARTAN 25 MG TAB PO SCH (08:31)
--- NOTE | 2017-07-11 08:48 | PN ---
Date/Time of Note Date/Time of Note DATE: 07/11/17 TIME: 08:46 Assessment/Plan VTE Prophylaxis VTE Prophylaxis Intervention: ambulation Lines/Catheters IV [facility] Type (from [facility]): PICC Line Central line still needed: Yes Urinary Cath still in place: No Assessment/Plan Chief Complaint/Hosp Course 1. The patient has bacterial urinary tract infection (UTI). 2. Multi drug resistant urinary tract infection (UTI). 3 esbl urine 4 S/p removal of bladder stone and ureter stones. Problems: Assessment/Plan 1. Discharge home with home health for 6 more days of Invanz IV therapy Subjective 24 Hr Interval Summary Constitutional: improved, no complaints Exam/Review of Systems Vital Signs Vitals Vital Signs Date Time Temp Pulse Resp B/P Pulse Ox O2 Delivery O2 Flow Rate FiO2 07/11/17 02:40 97.6 81 18 93/57 98 07/08/17 14:38 Room Air 07/08/17 14:09 10.0 Intake and Output 07/10/17 07/10/17 07/11/17 15:00 23:00 07:00 Intake Total 1680 ml 905 ml Balance 1680 ml 905 ml Exam Constitutional: alert, oriented Results Result Diagram: 07/11/17 0509 07/09/17 0521 Results 24 hrs Laboratory Tests Test 07/11/17 05:09 White Blood Count 9.8 Red Blood Count 4.18 L Hemoglobin 12.2 Hematocrit 36.4 L Mean Corpuscular Volume 87.1 Mean Corpuscular Hemoglobin 29.2 Mean Corpuscular Hemoglobin Concent 33.5 Red Cell Distribution Width 12.9 Platelet Count 337 Mean Platelet Volume 9.6 Neutrophils % 66.8 Lymphocytes % 23.1 Monocytes % 6.9 Eosinophils % 2.1 Basophils % 0.8 Nucleated Red Blood Cells % 0.0 Neutrophils # 6.6 Lymphocytes # 2.3 Monocytes # 0.7 Eosinophils # 0.2 Basophils # 0.1 Nucleated Red Blood Cells # 0.0 Medications Medications Current Medications Losartan Potassium 25 mg 25 mg DAILY PO Last administered on 07/11/17 08:31; Admin Dose 25 MG; Start 07/02/17 at 09:00 Sodium Chloride (NS) 1,000 ml @ 50 mls/hr Q20H IV Last administered on 20:28; Admin Dose 50 MLS/HR; Start 07/01/17 at 17:01 Ondansetron HCl (Zofran Inj) 4 mg Q6H PRN IV NAUSEA AND/OR VOMITING; Start 07/01 at 17:30 Acetaminophen (Tylenol Tab) 650 mg Q6H PRN PO PAIN LEVEL 1-3 OR FEVER Last administered on 07/05/17 21:23; Admin Dose 650 MG; Start 07/01/17 at 17:30 Acetaminophen (Tylenol Supp) 650 mg Q6H PRN [place] PAIN LEVEL 1-3 OR FEVER; Start 07/01/17 at 17:30 Acetaminophen/ Hydrocodone Bitart ([place] (5/325)) 1 tab Q6H PRN PO MODERATE PAIN LEVEL 4-6; Start 07/01/17 at 17:30 Docusate Sodium (Colace) 100 mg Q12H PRN PO CONSTIPATION; Start 07/01/17 at 17: 30 Magnesium Hydroxide (Milk Of Mag) 30 ml DAILY PRN PO CONSTIPATION Last administered on 07/10/17 16:35; Admin Dose 30 ML; Start 07/01/17 at 17:30 Bisacodyl (Dulcolax) 5 mg DAILY PRN PO CONSTIPATION; Start 07/01/17 at 17:30 Zolpidem Tartrate (Ambien) 5 mg QHS PRN PO SLEEP; Start 07/01/17 at 17:30 Pantoprazole (Protonix Tab) 40 mg DAILY@06 PO Last administered on 07/11/17 05 :08; Admin Dose 40 MG; Start 07/03/17 at 06:00 Ibuprofen 400 mg 400 mg Q6H PRN PO PAIN OR TEMP ABOVE 38C Last administered on 07/09/17 09:44; Admin Dose 400 MG; Start 07/04/17 at 12:00 Ertapenem/Sodium Chloride (Invanz/NS) 100 ml @ 200 mls/hr Q24H IVPB Last administered on 07/10/17 15:30; Admin Dose 200 MLS/HR; Start 07/05/17 at 15:00 IV Flush (NS 10 ml) 10 ml PRN PRN IV IV PROTOCOL; Start 07/09/17 at 15:00 Lactobacillus Acidophilus (Florajen3 Capsule) 1 each BID PO Last administered on 07/11/17 08:29; Admin Dose 1 EACH; Start 07/10/17 at 21:00 ROB BARON Jul 11, 2017 08:48
[2017-07-11] MEDS: ERTAPENEM SODIUM 1 GM in SOD CHLORIDE 0.9% 100 ML IVPB SCH (14:28)
--- NOTE | 2017-07-11 16:40 | CONS ---
Date/Time of Note Date/Time of Note DATE: 07/11/17 TIME: 16:39 Assessment/Plan Assessment/Plan Chief Complaint/Hosp Course SUBJECTIVE DATA: No events overnight. Alert, feels good, ready to be discharged home, no fevers MICROBIOLOGY: Repeat urine culture negative ANTIMICROBIAL: Invanz. PHYSICAL EXAMINATION: GENERAL: Well developed, middle-aged, [place] woman who is alert, in no distress. HEENT: Head atraumatic, normocephalic. Sclerae anicteric. Buccal mucosa pink. NECK: Supple. CHEST: Chest rise symmetrical. Breath sounds clear. HEART: S1, S2. ABDOMEN: Soft, bowel sounds present. EXTREMITIES: Without cyanosis. ASSESSMENT: 1. Escherichia coli, extended beta spectrum lactamase (ESBL) urinary tract infection (UTI). 2. Obstructive uropathy, cystoscopy. 3. Hypertension. PLAN: The patient remains stable, pending on IV Invanz to complete treatment. ANA pt/staff Problems: Consultation Date/Type/Reason Admit Date/Time Jul 01, 2017 at 13:56 Initial Consult Date 07/03/17 Type of Consultation: ID Referring Provider: NICOLAS BARILLAS MD Exam/Review of Systems Vital Signs Vitals Vital Signs Date Time Temp Pulse Resp B/P Pulse Ox O2 Delivery O2 Flow Rate FiO2 07/11/17 08:00 98.6 90 20 148/76 98 07/08/17 14:38 Room Air 07/08/17 14:09 10.0 Intake and Output 07/10/17 07/10/17 07/11/17 15:00 23:00 07:00 Intake Total 1680 ml 905 ml Balance 1680 ml 905 ml Results Result Diagram: 07/11/17 0509 07/09/17 0521 Results 24 hrs Laboratory Tests Test 07/11/17 05:09 White Blood Count 9.8 Red Blood Count 4.18 L Hemoglobin 12.2 Hematocrit 36.4 L Mean Corpuscular Volume 87.1 Mean Corpuscular Hemoglobin 29.2 Mean Corpuscular Hemoglobin Concent 33.5 Red Cell Distribution Width 12.9 Platelet Count 337 Mean Platelet Volume 9.6 Neutrophils % 66.8 Lymphocytes % 23.1 Monocytes % 6.9 Eosinophils % 2.1 Basophils % 0.8 Nucleated Red Blood Cells % 0.0 Neutrophils # 6.6 Lymphocytes # 2.3 Monocytes # 0.7 Eosinophils # 0.2 Basophils # 0.1 Nucleated Red Blood Cells # 0.0 REANNA DELGADO NP Jul 11, 2017 16:40
== END 2017-07-11 15:37 | disposition home or self-care (01) | DRG 670 ==
LOC: FTE 11:24 → PP2 13:56
PROVIDERS: ADMIT Internal Medicine Nephrology; ATTEND Internal Medicine Nephrology
PROC: 0TC68ZZ Extirpation of Matter from Right Ureter, Via Natural or Artificial Opening Endoscopic (ICD-10-PCS; principal; 2017-07-08 12:30)
PROC: 02HV33Z Insertion of Infusion Device into Superior Vena Cava, Percutaneous Approach (ICD-10-PCS; 2017-07-09)
DX: N39.0 Urinary tract infection, site not specified (principal); N13.2 Hydronephrosis with renal and ureteral calculous obstruction; I10 Essential (primary) hypertension; N21.0 Calculus in bladder; B96.20 Unspecified Escherichia coli [E. coli] as the cause of diseases classified elsewhere; N28.89 Other specified disorders of kidney and ureter; Z16.24 Resistance to multiple antibiotics
CPT/HCPCS: 36415; 36569; 71010; 74000; 74430; 76775; 76937; 80048; 80053; 81001; 83605; 84484; 85025; 85610; 85730; 87040; 87086; 88300; 93005; 96374; C9113; J1100; J1335; J2185; J2250; J2405; J3010; J7030

== ENCOUNTER 2017-07-22 18:38 | Emergency (ER) | payer OTHER ==
[~2017-07-22] VITALS: Ht 160 cm; Wt 73.0 kg
[~2017-07-22 18:38] MED LIST: BISA5TAB6 PO; DOCU-216 PO; IBUP400T22 PO; LACTINEX PO; LOSA25TA2 PO; UDMOM PO
[2017-07-22 19:13] VITALS: Ht 160 cm; Wt 73.0 kg
--- NOTE | 2017-07-23 02:48 | ERD ---
ER Documentation Chief Complaint Date/Time DATE: 07/23/17 TIME: 02:42 Chief Complaint c/o superficial pain on PICC line site on left upper arm HPI 52-year-old female complaining of pain in her PICC line site is 2 day. Patient had PICC line placed for outpatient antibiotic treatment for UTI. She has already finished antibiotic treatment, however her PCP wants to keep the PICC line in place into repeat UA and urine culture returned with negative result. She had sent a UA and culture today. The PICC line dressing was replaced by home health nurse yesterday. Patient reports blister and pain surrounding the PICC line dressing after the dressing change. She also concerned about dark color at the PICC line site. Denies fever or chills. Denies purulent drainage. Denies erythema swelling of the arm. ROS All systems reviewed and are negative except as per history of present illness. Medications Home Meds Active Scripts Lactobacillus Acidophilus* (Lactinex*) 1 Tab Chew, 1 TAB PO BID for 14 Days, TAB Prov:NICOLAS BARILLAS MD 07/10/17 Magnesium Hydroxide* ([facility]' MOM*) 30 Ml Susp, 30 ML PO DAILY Y for CONSTIPATION for 28 Days Prov:NICOLAS BARILLAS MD 07/10/17 Docusate Sodium (Dok) 100 Mg Capsule, 100 MG PO Q12H Y for CONSTIPATION for 14 Days, CAP Prov:NICOLAS BARILLAS MD 07/10/17 Bisacodyl* (Bisacodyl*) 5 Mg Tablet.dr, 5 MG PO DAILY Y for CONSTIPATION for 14 Days Prov:NICOLAS BARILLAS MD 07/10/17 Ibuprofen* (Ibuprofen*) 400 Mg Tablet, 400 MG PO Q6H Y for PAIN OR TEMP ABOVE 38C for 7 Days, TAB Prov:NICOLAS BARILLAS MD 07/10/17 Reported Medications Losartan Potassium* (Cozaar*) 25 Mg Tablet, 25 MG PO DAILY, #30 TAB 07/01/17 Allergies Allergies: Coded Allergies: diphenhydramine (Verified Allergy, Unknown, 07/02/17) PMhx/Soc History of Surgery: Yes (HYSTERECTOMY) Anesthesia Reaction: No Hx Neurological Disorder: No Hx Respiratory Disorders: No Hx Cardiac Disorders: Yes (HTN) Hx Psychiatric Problems: No Hx Miscellaneous Medical Probl: Yes (HX KIDNEY STONE AND RENAL INFECTION) Hx Alcohol Use: No Hx Substance Use: No Hx Tobacco Use: No Smoking Status: Never smoker Physical Exam Vitals Vital Signs Date Time Temp Pulse Resp B/P Pulse Ox O2 Delivery O2 Flow Rate FiO2 07/22/17 19:13 98.7 80 18 145/92 97 Physical Exam General: Well-developed, well-nourished, conscious and coherent, in no distress Skin: Warm and dry without rash, good texture and turgor. Small skin tear and a linear distribution of vesicles noted at the edge of the PICC line dressing. No erythema, swelling, induration noted. Dried blood noted in the center disc of the PICC line dressing. Head: Normocephalic without evidence of trauma Eyes: Sclera and conjunctivae normal; pupils equal, round, and reactive to light; extraocular movements are intact Chest: Normal AP diameter. Good expansion without retractions. Nontender. Lungs are clear to auscultate bilaterally with good tidal volume Heart: Regular rate and rhythm. No murmur, rub, or gallops heard Extremities: Full range of motion. Good strength bilaterally. No clubbing, cyanosis, or edema. Peripheral pulses are intact. Sensation intact Neuro: Alert and oriented 4, GCS 15. Cranial nerves grossly intact. Motor and sensory exams nonfocal. Moves all extremities. Speech clear. Gait normal Procedures/MDM Well-appearing 52-year-old female presented ED complaining of pain and the PICC line dressing site. Exam revealed a small skin tear and vesicles at the edge of the PICC line dressing, likely caused by forcible adhesive dressing removal during a dressing change. No sign of cellulitis, no sign of PICC line infection. Patient skin tear is cover with the adhesive bandage. Patient appears well, stable for discharge and outpatient management. Medical decision making shared with patient and family. Education provided to patient and family. Patient and family expressed understanding of the plan. Medications on discharge: None. Follow-up: Primary care provider in 2-3 days or return to ED if worse. Disclaimer: Inadvertent spelling and grammatical errors are likely due to EHR/ dictation software use and do not reflect on the overall quality of patient care. Also, please note that the electronic time recorded on this note does not necessarily reflect the actual time of the patient encounter. Departure Diagnosis: Primary Impression: Skin tear Condition: Stable Patient Instructions: Abrasion Additional Instructions: Call your primary care doctor TOMORROW for an appointment during the next 2-3 days.See the doctor sooner or return here if your condition worsens before your appointment time. HELDER PRATT NP Jul 23, 2017 02:48
== END 2017-07-22 20:37 | disposition home or self-care (01) ==
LOC: FTE 18:38
DX: T82.848A Pain due to vascular prosthetic devices, implants and grafts, initial encounter (principal); I10 Essential (primary) hypertension; Y82.8 Other medical devices associated with adverse incidents
CPT/HCPCS: 99282

== ENCOUNTER → 2017-10-28 | Outpatient (CLI) | END | disposition home or self-care (01) ==

== ENCOUNTER 2017-11-07 09:30 | Day surgery (SDC) | END 2017-11-07 15:50 | disposition home or self-care (01) ==

== ENCOUNTER 2017-12-10 09:36 | Emergency (ER) | END 2017-12-10 14:38 | disposition home or self-care (01) ==

== ENCOUNTER 2019-02-22 09:09 | Day surgery (SDC) | payer OTHER ==
[~2019-02-22] VITALS: Ht 152.4 cm; Wt 68.4 kg
[~2019-02-22 09:09] MED LIST changes: -BISA5TAB6 PO; -DOCU-216 PO; +IBUP-1542 PO; -IBUP400T22 PO; -LACTINEX PO; -UDMOM PO
[2019-02-22 10:21] VITALS: Ht 152.4 cm; Wt 68.4 kg
[2019-02-22 10:29] VITALS: BP 146/88; PULSE 67; RESP 20
[2019-02-22] MEDS ORDERED: PROPOFOL 40 ML ONE (10:33)
[2019-02-22] MEDS ORDERED: LIDOCAINE 100 MG SYRINGE ONE (10:33)
--- NOTE | 2019-02-22 10:39 | HPN ---
Date/Time of Note Date/Time of Note DATE: 02/22/19 TIME: 10:39 Interval H&P Admission Note Pt. seen H&P reviewed: No system changes KANNAN BROWNING Feb 22, 2019 10:39
[2019-02-22 11:40] VITALS: BP 111/73; PULSE 56; RESP 14
--- NOTE | 2019-02-23 12:25 | PAC ---
Date/Time of Note Date/Time of Note DATE: 02/23/19 TIME: 12:25 Post-Anesthesia Notes Post-Anesthesia Note Last documented vital signs Vital Signs Date Temp Pulse Resp B/P (MAP) Pulse Ox O2 O2 Flow FiO2 Time Delivery Rate 02/22/19 56 14 111/73 66 Room Air 11:40 (86) 02/22/19 97.4 10:29 Activity: WNL Respiratory function: WNL Cardiovascular function: WNL Mental status: Baseline Pain reasonably controlled: Yes Hydration appropriate: Yes Nausea/Vomiting absent: Yes Efrem Archibald M.D. Feb 23, 2019 12:25
== END 2019-02-22 11:34 | disposition home or self-care (01) ==
LOC: GIL 09:09
PROVIDERS: ATTEND Internal Medicine Gastroenterology
DX: Z12.11 Encounter for screening for malignant neoplasm of colon (principal); K57.30 Diverticulosis of large intestine without perforation or abscess without bleeding; K64.8 Other hemorrhoids
CPT/HCPCS: 45378; J2001; Z7610